=== PATIENT | female | born 1995 | race Asian ===

== ENCOUNTER 2024-07-16 10:42 | Inpatient (IN) | payer MEDICAID ==
[~2024-07-16] VITALS: Ht 149.9 cm; Wt 70.6 kg
[2024-07-16] VITALS (18 sets, daily range): BP systolic 151–193; BP diastolic 95–119; PULSE 75–94; RESP 16–28; TEMP 97.8–98.8; O2SAT 96–99
[2024-07-16] MEDS ORDERED: albumin (human) 25% 100ml IV 100 ML IV PRN (12:40)
[2024-07-16 12:47] LABS: BASOPHILS % (AUTO) 0.5 % (0-1); EOSINOPHILS # (AUTO) 0.3 X10'3 (0-0.9); LYMPHOCYTES # (AUTO) 1.5 X10'3 (1.1-4.8); LYMPHOCYTES % (AUTO) 19.2 % (21-51); MEAN CORPUSCULAR HEMOGLOBIN 31.7 PG (27.0-31.0); MEAN CORPUSCULAR HGB CONC 33.5 g/dL (33.0-36.5); MEAN CORPUSCULAR VOLUME 94.9 FL (78-98); MEAN PLATELET VOLUME 8.8 FL (7.4-10.4); MONOCYTES # (AUTO) 0.7 X10'3 (0-0.9); MONOCYTES % (AUTO) 8.4 % (2-12); NEUTROPHILS # (AUTO) 5.3 X10'3 (1.8-7.7); NEUTROPHILS % (AUTO) 67.9 % (42-75); PLATELET COUNT 146 X10'3 (140-440); RED BLOOD COUNT 1.98 X10'6 (4.20-5.60); WHITE BLOOD COUNT 7.9 X10'3 (4.5-11.0)
[2024-07-16 12:51] LABS: HEMATOCRIT 18.8 % (35.0-45.0); HEMOGLOBIN 6.3 g/dl (12.0-16.0)
[2024-07-16 13:01] LABS: ALANINE AMINOTRANSFERASE 15 U/L (12-78); ALBUMIN 2.4 G/DL (3.4-5.0); ALBUMIN/GLOBULIN RATIO 0.5 (1.1-1.5); ALKALINE PHOSPHATASE 59 IU/L (46-116); ANION GAP 3 (8-16); ASPARTATE AMINO TRANSFERASE 12 U/L (10-37); BILIRUBIN,TOTAL 0.6 MG/DL (0.1-1.0); BLOOD UREA NITROGEN 35 MG/DL (7-18); BUN/CREATININE RATIO 5.2 (10.0-20.0); CALCIUM 8.2 MG/DL (8.5-10.1); CHLORIDE 98 MMOL/L (99-107); CREATININE 6.73 MG/DL (0.40-0.90); GLUCOSE 70 MG/DL (70-104); MAGNESIUM 2.1 MG/DL (1.5-2.4); POTASSIUM 5.4 MMOL/L (3.5-5.1); SODIUM 140 MMOL/L (135-145); TOTAL PROTEIN 6.8 G/DL (6.4-8.2); eCRCL 8 ML/MIN; eGFR 7 ML/MIN
[2024-07-16 14:09] LABS: APTT 27 SECONDS (22-32); INR 1.1 INR; PROTHROMBIN TIME 11.8 SECONDS (9.0-12.0)
[2024-07-16] MEDS ORDERED: acetaminophen 325mg tablet PO PRN ×2 (14:25)
[2024-07-16] MEDS ORDERED: ondansetron 4mg rapidly disintigrating tab PO PRN (14:25)
[2024-07-16] MEDS ORDERED: diphenhydrAMINE 25mg capsule PO PRN (14:25)
[2024-07-16] MEDS ORDERED: bisacodyl 10mg suppository rectal RC PRN (14:25)
[2024-07-16] MEDS ORDERED: HYDROcodone/acetaminophen 5mg/325mg tablet PO PRN (14:25)
[2024-07-16] MEDS ORDERED: magnesium hydroxide 30ml (MOM) UD suspension PO PRN (14:25)
[2024-07-16] MEDS ORDERED: metoclopramide 5 mg/ml inj IV PRN (14:25)
[2024-07-16] MEDS ORDERED: morphine 2 MG/ML inj. syringe IV PRN ×2 (14:25)
[2024-07-16] MEDS ORDERED: acetaminophen 650mg rectal suppository RC PRN (14:25)
[2024-07-16] MEDS ORDERED: ondansetron/PF 4mg/2ml inj IV PRN (14:25)
[2024-07-16] MEDS ORDERED: diphenhydrAMINE 50 mg/ml inj IV PRN (14:25)
[2024-07-16] MEDS ORDERED: mag hydrox/Alum hydrox/simeth 30ml oral suspension PO PRN (14:25)
[2024-07-16 15:24] LABS: PHOSPHORUS 6.2 MG/DL (2.3-4.5)
[2024-07-16 15:37] LABS: HEMOGLOBIN A1C 4.1 % (4.5-6.2)
[2024-07-16 16:37] LABS: PRO BRAIN NATRIURETIC PEPTIDE > 30000 PG/ML (0-125)
[2024-07-16] MEDS: ipratropium/albuterol 3ml nebule NEB PRN (17:00)
[2024-07-16] MEDS: HYDROcodone/acetaminophen 10/325mg tab PO PRN (17:07)
[2024-07-16] MEDS: labetalol 20mg/4ml (5mg/ml) syringe IV PRN (18:39)
[2024-07-16] MEDS: docusate sod 100mg capsule PO SCH (20:00)
[2024-07-16] MEDS ORDERED: PANT40TA54 PO (20:02)
[2024-07-16] MEDS ORDERED: CALC-3 PO (20:02)
[2024-07-16] MEDS ORDERED: PRED5TAB PO (20:02)
[2024-07-16] MEDS ORDERED: METO100T14 PO (20:02)
[2024-07-16] MEDS ORDERED: FOLI0.8T52 PO (20:02)
[2024-07-16] MEDS ORDERED: LOSA-416 PO (20:02)
[2024-07-16] MEDS ORDERED: SULF1TAB48 PO (20:02)
[2024-07-16] MEDS: heparin 1,000 units/ml 10ml inj HE ONE ×2 (20:31→20:32)
[2024-07-16] MEDS: heparin 1,000unit/ml 10ml vial 10 ML IV ONE (20:31)
[2024-07-16] MEDS: heparin 1,000 units/ml 10ml inj IV ONE (20:32)
[2024-07-16] MEDS: EPOETIN ALFA-EPBX 20,000 UNIT/ML 1 ML MDV IV ONE (20:33)
[2024-07-16] MEDS ORDERED: temazepam 15mg capsule PO PRN (21:00)
[2024-07-16] MEDS: metoprolol tartrate 50mg tablet PO SCH (21:03)
[2024-07-16] MEDS: heparin, porcine 5000 units/ml vial SQ SCH (23:46)
[2024-07-16] MEDS: predniSONE 5mg tablet PO SCH (23:54)
[2024-07-16] MEDS: folic acid/vitamin B complex w/vitamin C 0.8mg tablet PO SCH (23:55)
[2024-07-16] MEDS: pantoprazole 40mg Tablet.DR PO SCH (23:55)
[2024-07-16] MEDS: calcium carbonate/vitamin D3 tablet PO SCH (23:56)
[2024-07-17] VITALS (14 sets, daily range): BP systolic 141–198; BP diastolic 84–121; PULSE 74–95; RESP 10–27; TEMP 97.4–99.6; O2SAT 96–100
[2024-07-17 01:17] LABS: HEMATOCRIT 25.2 % (35.0-45.0); HEMOGLOBIN 8.4 g/dl (12.0-16.0); MEAN CORPUSCULAR HEMOGLOBIN 30.4 PG (27.0-31.0); MEAN CORPUSCULAR HGB CONC 33.2 g/dL (33.0-36.5); MEAN CORPUSCULAR VOLUME 91.7 FL (78-98); MEAN PLATELET VOLUME 8.3 FL (7.4-10.4); PLATELET COUNT 155 X10'3 (140-440); RED BLOOD COUNT 2.75 X10'6 (4.20-5.60); RED CELL DISTRIBUTION WIDTH 17.4 % (11.5-14.5); WHITE BLOOD COUNT 9.6 X10'3 (4.5-11.0)
[2024-07-17] MEDS: losartan 50mg tablet PO ONE (03:30)
[2024-07-17] MEDS: labetalol 20mg/4ml (5mg/ml) syringe IV ONE (03:30)
[2024-07-17] MEDS ORDERED: albumin (human) 25% 100ml IV 100 ML IV PRN (05:15)
[2024-07-17 06:51] LABS: ALANINE AMINOTRANSFERASE 17 U/L (12-78); ALBUMIN 2.7 G/DL (3.4-5.0); ALBUMIN/GLOBULIN RATIO 0.5 (1.1-1.5); ALKALINE PHOSPHATASE 62 IU/L (46-116); ANION GAP 6 (8-16); ASPARTATE AMINO TRANSFERASE 15 U/L (10-37); BLOOD UREA NITROGEN 22 MG/DL (7-18); BUN/CREATININE RATIO 4.6 (10.0-20.0); CALCIUM 9.3 MG/DL (8.5-10.1); CHLORIDE 99 MMOL/L (99-107); CHOL/HDL RATIO 2.1 (0.00-4.99); CHOLESTEROL 148 MG/DL (0-200); CREATININE 4.74 MG/DL (0.40-0.90); GLUCOSE 114 MG/DL (70-104); HDL CHOLESTEROL 69 MG/DL (35-60); LDL CHOLESTEROL 61 MG/DL (50-100); POTASSIUM 5.9 MMOL/L (3.5-5.1); SODIUM 135 MMOL/L (135-145); TOTAL CARBON DIOXIDE 30.5 MMOL/L (24-32); TOTAL PROTEIN 7.8 G/DL (6.4-8.2); TRIGLYCERIDES 76 MG/DL (20-135); eCRCL 12 ML/MIN; eGFR 11 ML/MIN
[2024-07-17 07:17] LABS: BASOPHILS % (AUTO) 0.2 % (0-1); EOSINOPHILS % (AUTO) 0.1 % (0-6); HEMATOCRIT 23.4 % (35.0-45.0); HEMOGLOBIN 7.9 g/dl (12.0-16.0); LYMPHOCYTES # (AUTO) 0.4 X10'3 (1.1-4.8); LYMPHOCYTES % (AUTO) 4.6 % (21-51); MEAN CORPUSCULAR HEMOGLOBIN 30.8 PG (27.0-31.0); MEAN CORPUSCULAR HGB CONC 33.7 g/dL (33.0-36.5); MEAN CORPUSCULAR VOLUME 91.6 FL (78-98); MEAN PLATELET VOLUME 8.9 FL (7.4-10.4); MONOCYTES # (AUTO) 0.3 X10'3 (0-0.9); MONOCYTES % (AUTO) 3.5 % (2-12); NEUTROPHILS # (AUTO) 8.3 X10'3 (1.8-7.7); NEUTROPHILS % (AUTO) 91.6 % (42-75); PLATELET COUNT 149 X10'3 (140-440); RED BLOOD COUNT 2.55 X10'6 (4.20-5.60); RED CELL DISTRIBUTION WIDTH 17.4 % (11.5-14.5)
[2024-07-17] MEDS: losartan 50mg tablet PO SCH (07:48)
[2024-07-17] MEDS: pantoprazole 40mg Tablet.DR PO SCH (07:49)
[2024-07-17] MEDS: CefTRIAXone/D5W-Rocephin 1gm 50 ML IV SCH (07:51)
[2024-07-17] MEDS: azithromycin/NS 500mg/250ml 250 ML IV SCH (09:59)
[2024-07-17] MEDS: EPOETIN ALFA-EPBX 20,000 UNIT/ML 1 ML MDV IV ONE (12:00)
[2024-07-17] MEDS: heparin 1,000unit/ml 10ml vial 10 ML IV ONE (13:43)
[2024-07-17] MEDS: heparin 1,000 units/ml 10ml inj HE ONE ×2 (13:44→13:45)
[2024-07-17] MEDS: heparin 1,000 units/ml 10ml inj IV ONE (13:44)
[2024-07-17] MEDS: cloNIDine 0.1 mg tablet PO PRN (23:04)
[2024-07-18] VITALS (9 sets, daily range): BP systolic 124–173; BP diastolic 70–113; PULSE 70–88; RESP 14–28; TEMP 97.7–98.2; O2SAT 95–100
[2024-07-18 06:59] LABS: BASOPHILS # (AUTO) 0.1 X10'3 (0-0.2); BASOPHILS % (AUTO) 0.7 % (0-1); EOSINOPHILS # (AUTO) 0.2 X10'3 (0-0.9); EOSINOPHILS % (AUTO) 1.7 % (0-6); HEMOGLOBIN 8.9 g/dl (12.0-16.0); LYMPHOCYTES # (AUTO) 1.7 X10'3 (1.1-4.8); LYMPHOCYTES % (AUTO) 18.7 % (21-51); MEAN CORPUSCULAR HEMOGLOBIN 30.4 PG (27.0-31.0); MEAN CORPUSCULAR HGB CONC 31.9 g/dL (33.0-36.5); MEAN CORPUSCULAR VOLUME 95.5 FL (78-98); MEAN PLATELET VOLUME 8.8 FL (7.4-10.4); MONOCYTES # (AUTO) 0.8 X10'3 (0-0.9); MONOCYTES % (AUTO) 9.1 % (2-12); NEUTROPHILS # (AUTO) 6.2 X10'3 (1.8-7.7); NEUTROPHILS % (AUTO) 69.8 % (42-75); PLATELET COUNT 185 X10'3 (140-440); RED BLOOD COUNT 2.93 X10'6 (4.20-5.60); RED CELL DISTRIBUTION WIDTH 17.5 % (11.5-14.5); WHITE BLOOD COUNT 8.9 X10'3 (4.5-11.0)
[2024-07-18 07:50] LABS: ALANINE AMINOTRANSFERASE 12 U/L (12-78); ALBUMIN 2.6 G/DL (3.4-5.0); ALBUMIN/GLOBULIN RATIO 0.5 (1.1-1.5); ALKALINE PHOSPHATASE 71 IU/L (46-116); ANION GAP 9 (8-16); ASPARTATE AMINO TRANSFERASE 14 U/L (10-37); BILIRUBIN,TOTAL 0.8 MG/DL (0.1-1.0); BLOOD UREA NITROGEN 25 MG/DL (7-18); BUN/CREATININE RATIO 4.9 (10.0-20.0); CALCIUM 8.1 MG/DL (8.5-10.1); CHLORIDE 102 MMOL/L (99-107); GLUCOSE 103 MG/DL (70-104); POTASSIUM 4.4 MMOL/L (3.5-5.1); SODIUM 137 MMOL/L (135-145); TOTAL CARBON DIOXIDE 25.6 MMOL/L (24-32); TOTAL PROTEIN 7.8 G/DL (6.4-8.2); eCRCL 11 ML/MIN; eGFR 10 ML/MIN
[2024-07-18] MEDS: calcium acetate 667mg (PhosLO) capsule PO SCH (09:18)
[2024-07-19] VITALS (13 sets, daily range): BP systolic 116–181; BP diastolic 76–112; PULSE 60–96; RESP 16–21; TEMP 97.4–98.2; O2SAT 97–99
[2024-07-19 05:18] LABS: HBSAG SCREEN Negative (Negative); HEP B SURF AB Reactive (.)
[2024-07-19 08:39] LABS: BASOPHILS % (AUTO) 0.3 % (0-1); EOSINOPHILS # (AUTO) 0.2 X10'3 (0-0.9); EOSINOPHILS % (AUTO) 1.5 % (0-6); HEMATOCRIT 24.1 % (35.0-45.0); HEMOGLOBIN 8.1 g/dl (12.0-16.0); LYMPHOCYTES % (AUTO) 18.8 % (21-51); MEAN CORPUSCULAR HEMOGLOBIN 30.7 PG (27.0-31.0); MEAN CORPUSCULAR HGB CONC 33.6 g/dL (33.0-36.5); MEAN CORPUSCULAR VOLUME 91.6 FL (78-98); MEAN PLATELET VOLUME 9.2 FL (7.4-10.4); MONOCYTES # (AUTO) 1.1 X10'3 (0-0.9); MONOCYTES % (AUTO) 10.5 % (2-12); NEUTROPHILS # (AUTO) 7.4 X10'3 (1.8-7.7); NEUTROPHILS % (AUTO) 68.9 % (42-75); PLATELET COUNT 191 X10'3 (140-440); RED BLOOD COUNT 2.63 X10'6 (4.20-5.60); WHITE BLOOD COUNT 10.8 X10'3 (4.5-11.0)
[2024-07-19 08:52] LABS: ALANINE AMINOTRANSFERASE 11 U/L (12-78); ALBUMIN 2.4 G/DL (3.4-5.0); ALBUMIN/GLOBULIN RATIO 0.5 (1.1-1.5); ALKALINE PHOSPHATASE 77 IU/L (46-116); ANION GAP 10 (8-16); ASPARTATE AMINO TRANSFERASE 11 U/L (10-37); BILIRUBIN,TOTAL 0.6 MG/DL (0.1-1.0); BLOOD UREA NITROGEN 43 MG/DL (7-18); BUN/CREATININE RATIO 5.3 (10.0-20.0); CALCIUM 9.1 MG/DL (8.5-10.1); CHLORIDE 99 MMOL/L (99-107); CREATININE 8.19 MG/DL (0.40-0.90); GLUCOSE 137 MG/DL (70-104); POTASSIUM 4.6 MMOL/L (3.5-5.1); SODIUM 133 MMOL/L (135-145); TOTAL CARBON DIOXIDE 23.6 MMOL/L (24-32); TOTAL PROTEIN 7.1 G/DL (6.4-8.2); eCRCL 7 ML/MIN; eGFR 6 ML/MIN
[2024-07-19] MEDS ORDERED: albumin (human) 25% 100ml IV 100 ML IV PRN (14:40)
[2024-07-19] MEDS: EPOETIN ALFA-EPBX 20,000 UNIT/ML 1 ML MDV IV ONE (16:12)
[2024-07-19] MEDS: heparin 1,000 units/ml 10ml inj IV ONE (16:13)
[2024-07-19] MEDS: heparin 1,000unit/ml 10ml vial 10 ML IV ONE (16:13)
[2024-07-19] MEDS: heparin 1,000 units/ml 10ml inj HE ONE ×2 (16:14)
== END 2024-07-19 19:10 | disposition home or self-care (01) | DRG 139 ==
LOC: ER 10:43 → ED HOLD 14:29 → PCU 3S 17:50
PROVIDERS: ADMIT Family Medicine; ATTEND Family Medicine
PROC: 30233N1 Transfusion of Nonautologous Red Blood Cells into Peripheral Vein, Percutaneous Approach (ICD-10-PCS; principal; 2024-07-16)
PROC: 5A1D70Z Performance of Urinary Filtration, Intermittent, Less than 6 Hours Per Day (ICD-10-PCS; 2024-07-16)
PROC: 5A1D70Z Performance of Urinary Filtration, Intermittent, Less than 6 Hours Per Day (ICD-10-PCS; 2024-07-17)
PROC: 5A1D70Z Performance of Urinary Filtration, Intermittent, Less than 6 Hours Per Day (ICD-10-PCS; 2024-07-19)
DX: J16.8 Pneumonia due to other specified infectious organisms (principal); J96.01 Acute respiratory failure with hypoxia; I50.33 Acute on chronic diastolic (congestive) heart failure; T86.12 Kidney transplant failure; Z20.822 Contact with and (suspected) exposure to COVID-19; N18.6 End stage renal disease; E88.09 Other disorders of plasma-protein metabolism, not elsewhere classified; I13.2 Hypertensive heart and chronic kidney disease with heart failure and with stage 5 chronic kidney disease, or end stage renal disease; E78.5 Hyperlipidemia, unspecified; D64.9 Anemia, unspecified; J06.9 Acute upper respiratory infection, unspecified; E87.5 Hyperkalemia; Y83.0 Surgical operation with transplant of whole organ as the cause of abnormal reaction of the patient, or of later complication, without mention of misadventure at the time of the procedure; Z79.899 Other long term (current) drug therapy; Z99.2 Dependence on renal dialysis; Y92.89 Other specified places as the place of occurrence of the external cause
CPT/HCPCS: 36415; 36430; 71045; 80053; 80061; 83036; 83605; 83735; 83880; 84100; 84145; 84443; 85025; 85027; 85610; 85730; 86706; 86885; 86900; 86901; 86920; 87040; 87081; 87340; 87502; 87503; 87811; 93005; 94640; 94760; 99291; A6449; E1594; G0257; G0378; J0456; J0696; J1644; J3490; J7030; J7040; J7050; J7512; P9016; Q4081

== ENCOUNTER 2024-07-31 10:05 | Emergency (ER) | payer MEDICAID ==
[~2024-07-31] VITALS: Ht 149.9 cm; Wt 63.6 kg
[~2024-07-31 10:05] MED LIST: CALC-3 PO; FOLI0.8T52 PO; LOSA-416 PO; METO100T14 PO; PANT40TA54 PO; PRED5TAB PO; SULF1TAB48 PO
[2024-07-31 10:19] VITALS: BP 184/126; PULSE 97; O2SAT 100
[2024-07-31 14:05] VITALS: RESP 16
[2024-07-31] MEDS: ondansetron 4mg rapidly disintigrating tab PO ONE (14:05)
[2024-07-31] MEDS: HYDROcodone/acetaminophen 10/325mg tab PO ONE (14:05)
[2024-07-31] MEDS ORDERED: CEPH-585 PO (14:12)
[2024-07-31] MEDS ORDERED: HYDR-3972 PO (14:12)
[2024-07-31 15:13] VITALS: TEMP 98.1
== END 2024-07-31 15:16 | disposition home or self-care (01) ==
LOC: ER 10:06
DX: M79.671 Pain in right foot (principal)
CPT/HCPCS: 73630; 99283; L4360

== ENCOUNTER 2024-08-07 15:01 | Inpatient (IN) | payer MEDICAID ==
[~2024-08-07] VITALS: Ht 149.9 cm; Wt 72.5 kg
[~2024-08-07 15:01] MED LIST changes: +CEPH-585 PO
[2024-08-07 16:01] LABS: BASOPHILS % (AUTO) 0.6 % (0-1); EOSINOPHILS # (AUTO) 0.4 X10'3 (0-0.9); HEMATOCRIT 24.8 % (35.0-45.0); HEMOGLOBIN 8.3 g/dl (12.0-16.0); LYMPHOCYTES # (AUTO) 1.2 X10'3 (1.1-4.8); LYMPHOCYTES % (AUTO) 17.9 % (21-51); MEAN CORPUSCULAR HEMOGLOBIN 30.2 PG (27.0-31.0); MEAN CORPUSCULAR HGB CONC 33.5 g/dL (33.0-36.5); MEAN CORPUSCULAR VOLUME 90.4 FL (78-98); MEAN PLATELET VOLUME 8.1 FL (7.4-10.4); MONOCYTES # (AUTO) 0.8 X10'3 (0-0.9); NEUTROPHILS # (AUTO) 4.3 X10'3 (1.8-7.7); NEUTROPHILS % (AUTO) 63.5 % (42-75); PLATELET COUNT 297 X10'3 (140-440); RED BLOOD COUNT 2.74 X10'6 (4.20-5.60); RED CELL DISTRIBUTION WIDTH 16.7 % (11.5-14.5); WHITE BLOOD COUNT 6.8 X10'3 (4.5-11.0)
[2024-08-07 16:20] LABS: ALANINE AMINOTRANSFERASE 17 U/L (12-78); ALBUMIN 2.5 G/DL (3.4-5.0); ALBUMIN/GLOBULIN RATIO 0.4 (1.1-1.5); ALKALINE PHOSPHATASE 46 IU/L (46-116); ANION GAP 3 (8-16); ASPARTATE AMINO TRANSFERASE 19 U/L (10-37); BILIRUBIN,TOTAL 1.1 MG/DL (0.1-1.0); BLOOD UREA NITROGEN 5 MG/DL (7-18); BUN/CREATININE RATIO 1.7 (10.0-20.0); CALCIUM 8.1 MG/DL (8.5-10.1); CHLORIDE 93 MMOL/L (99-107); CREATININE 2.89 MG/DL (0.40-0.90); GLUCOSE 69 MG/DL (70-104); POTASSIUM 3.7 MMOL/L (3.5-5.1); SODIUM 135 MMOL/L (135-145); TOTAL CARBON DIOXIDE 38.6 MMOL/L (24-32); TOTAL PROTEIN 8.5 G/DL (6.4-8.2); eCRCL 19 ML/MIN; eGFR 19 ML/MIN
[2024-08-07] MEDS: acetaminophen 325mg tablet PO ONE ×2 (16:43→18:58)
[2024-08-07 17:06] LABS: PRO BRAIN NATRIURETIC PEPTIDE > 30000 PG/ML (0-125)
[2024-08-07] MEDS ORDERED: PANT20TA2 PO (18:25)
[2024-08-07] MEDS ORDERED: DOXY100T67 PO (18:25)
[2024-08-07] MEDS ORDERED: ALPR-624 PO (18:25)
[2024-08-07] MEDS ORDERED: FLUT1BLS13 INH (18:25)
[2024-08-07] MEDS ORDERED: PRED1TAB PO (22:22)
[2024-08-07] MEDS ORDERED: CLON0.1T2 PO (22:22)
[2024-08-07] MEDS ORDERED: magnesium hydroxide 30ml (MOM) UD suspension PO PRN (23:15)
[2024-08-07] MEDS ORDERED: magnesium sulf-water 4G/100mL 100 ML IV PRN (23:15)
[2024-08-07] MEDS ORDERED: magnesium Cl slow-release 64mg tablet PO PRN (23:15)
[2024-08-07] MEDS ORDERED: acetaminophen 325mg tablet PO PRN (23:15)
[2024-08-07] MEDS ORDERED: mag hydrox/Alum hydrox/simeth 30ml oral suspension PO PRN (23:15)
[2024-08-07] MEDS ORDERED: potassium Cl 40MEQ/1/2NS 520ml 520 ML IV PRN (23:15)
[2024-08-07] MEDS ORDERED: magnesium sulf-water 2g/50mL 50 ML IV PRN (23:15)
[2024-08-07] MEDS ORDERED: HYDROmorphone/PF 0.2 MG/ML SYRINGE IV PRN (23:15)
[2024-08-07] MEDS ORDERED: potassium Cl 20 mEq SR tablet PO PRN ×2 (23:15)
[2024-08-08] MEDS: folic acid/vitamin B complex w/vitamin C 0.8mg tablet PO SCH (00:03)
[2024-08-08] MEDS: predniSONE 1 mg tablet PO SCH (00:03)
[2024-08-08] MEDS: cloNIDine 0.1 mg tablet PO SCH (00:04)
[2024-08-08] MEDS: HYDROmorphone inj. 0.5 MG/0.5 ML DISP.SYRIN IV PRN (00:04)
[2024-08-08] MEDS: normal saline 1000ml 1,000 ML IV SCH (00:04)
[2024-08-08] MEDS: pantoprazole 40 MG vial IV SCH (00:04)
[2024-08-08 00:05] LABS: HCG SERUM QL NEGATIVE
[2024-08-08] MEDS: PERFLUTREN PROTEIN-A MICROSPHR (Optison) 0.22 MG/ML 3ML VIAL IV ONE (00:13)
[2024-08-08 02:04] LABS: D-DIMER 3.94 MG/L FEU (0-0.50)
[2024-08-08 02:24] LABS: ABG BASE EXCESS 9.9 mmol/L (-2.0-3.0); ABG HCO3 32.7 mmol/L (21.0-28.0); ABG OXYGEN SATURATION 95.7 % (94.0-98.0); ABG PCO2 (T) 36.1 mmHg (32.0-45.0); ABG PH (T) 7.574 (7.350-7.450); ABG PO2 (T) 73.5 mmHg (83.0-108.0); ALLEN'S TEST POSITIVE; FHHb 4.2 % (0.0-5.0); FMetHb 0.3 % (0.0-1.5); FO2Hb 93.5 % (94.0-98.0); PATIENT TEMPERATURE 36.9; TOTAL HEMOGLOBIN 7.7 G/dl (12.0-16.0)
[2024-08-08] MEDS: metoprolol tartrate 1mg/ml inj IV SCH (02:40)
[2024-08-08] MEDS: heparin, porcine 5000 units/ml vial SQ SCH (02:40)
[2024-08-08 02:54] LABS: BASOPHILS # (AUTO) 0.1 X10'3 (0-0.2); BASOPHILS % (AUTO) 0.9 % (0-1); EOSINOPHILS # (AUTO) 0.6 X10'3 (0-0.9); EOSINOPHILS % (AUTO) 7.5 % (0-6); HEMOGLOBIN 7.1 g/dl (12.0-16.0); LYMPHOCYTES # (AUTO) 1.2 X10'3 (1.1-4.8); LYMPHOCYTES % (AUTO) 16.3 % (21-51); MEAN CORPUSCULAR HEMOGLOBIN 30.4 PG (27.0-31.0); MEAN CORPUSCULAR HGB CONC 33.2 g/dL (33.0-36.5); MEAN CORPUSCULAR VOLUME 91.7 FL (78-98); MONOCYTES # (AUTO) 1.2 X10'3 (0-0.9); MONOCYTES % (AUTO) 15.4 % (2-12); NEUTROPHILS # (AUTO) 4.6 X10'3 (1.8-7.7); NEUTROPHILS % (AUTO) 59.9 % (42-75); PLATELET COUNT 256 X10'3 (140-440); RED BLOOD COUNT 2.33 X10'6 (4.20-5.60); RED CELL DISTRIBUTION WIDTH 16.4 % (11.5-14.5); WHITE BLOOD COUNT 7.7 X10'3 (4.5-11.0)
[2024-08-08 02:56] LABS: HEMATOCRIT 21.4 % (35.0-45.0)
[2024-08-08] MEDS: azithromycin 250mg tablet PO ONE (03:09)
[2024-08-08 03:17] LABS: TOTAL CELLS COUNTED 100
[2024-08-08 03:22] LABS: ALANINE AMINOTRANSFERASE 16 U/L (12-78); ALBUMIN 2.3 G/DL (3.4-5.0); ALBUMIN/GLOBULIN RATIO 0.4 (1.1-1.5); ALKALINE PHOSPHATASE 41 IU/L (46-116); ANION GAP 9 (8-16); ASPARTATE AMINO TRANSFERASE 14 U/L (10-37); BILIRUBIN,TOTAL 1.1 MG/DL (0.1-1.0); BLOOD UREA NITROGEN 13 MG/DL (7-18); BUN/CREATININE RATIO 2.8 (10.0-20.0); CALCIUM 8.2 MG/DL (8.5-10.1); CHLORIDE 92 MMOL/L (99-107); CREATININE 4.72 MG/DL (0.40-0.90); GLUCOSE 65 MG/DL (70-104); MAGNESIUM 1.7 MG/DL (1.5-2.4); POTASSIUM 4.1 MMOL/L (3.5-5.1); SODIUM 137 MMOL/L (135-145); TOTAL CARBON DIOXIDE 36.2 MMOL/L (24-32); TOTAL PROTEIN 7.8 G/DL (6.4-8.2); eCRCL 12 ML/MIN; eGFR 11 ML/MIN
[2024-08-08] MEDS: hydrALAZINE 20mg/ml inj. IV ONE (04:52)
[2024-08-08] MEDS: nitroGLYCERIN-Tridil 50MG/D5W 250 ML IV SCH (05:43)
[2024-08-08] MEDS: nitroGLYCERIN-Tridil 50MG/D5W 250 ML IV PRN (06:43)
[2024-08-08] MEDS: K and/or MAG REPLACEMENT MC SCH (08:00)
[2024-08-08] MEDS: docusate sod 100mg capsule PO SCH (08:00)
[2024-08-08] MEDS: CefTRIAXone/D5W-Rocephin 1gm 50 ML IV SCH (08:14)
[2024-08-08] MEDS: losartan 50mg tablet PO SCH (08:16)
[2024-08-08] MEDS: metoprolol tartrate 50mg tablet PO SCH (08:17)
[2024-08-08] MEDS: ondansetron/PF 4mg/2ml inj IV PRN (12:26)
[2024-08-08] MEDS: acetaminophen 325mg tablet PO PRN (16:00)
[2024-08-08 16:32] VITALS: RESP 18; O2SAT 98
[2024-08-08] MEDS: COMMUNICATION ORDER 1 EA MISC MC ONE (17:22)
[2024-08-08] MEDS: ALPRAZolam 0.5mg tablet PO SCH (20:37)
[2024-08-08] MEDS: LORazepam 2 mg/ml vial IV ONE (21:35)
[2024-08-08] MEDS: cloNIDine 0.1 mg tablet PO ONE (21:42)
[2024-08-09] VITALS (18 sets, daily range): BP systolic 121–198; BP diastolic 45–122; PULSE 71–98; RESP 12–56; TEMP 97–99.6; O2SAT 85–99
[2024-08-09] MEDS: labetalol 20mg/4ml (5mg/ml) syringe IV ONE (00:02)
[2024-08-09 01:32] LABS: ABG BASE EXCESS 8.1 mmol/L (-2.0-3.0); ABG HCO3 32.1 mmol/L (21.0-28.0); ABG OXYGEN SATURATION 94.6 % (94.0-98.0); ABG PCO2 (T) 42.4 mmHg (32.0-45.0); ABG PH (T) 7.496 (7.350-7.450); ABG PO2 (T) 70.1 mmHg (83.0-108.0); ALLEN'S TEST POSITIVE; FCOHb 1.8 % (0.5-1.5); FHHb 5.3 % (0.0-5.0); FLOW 3 L/min; FO2Hb 92.9 % (94.0-98.0); MODE NASAL CANNULA; PATIENT TEMPERATURE 36.8; TOTAL HEMOGLOBIN 7.1 G/dl (12.0-16.0)
[2024-08-09] MEDS ORDERED: albuterol 2.5 MG/3 ML nebule NEB PRN (01:35)
[2024-08-09] MEDS: LORazepam 2 mg/ml vial IV ONE (02:13)
[2024-08-09] MEDS ORDERED: ipratropium/albuterol 3ml nebule NEB PRN (03:00)
[2024-08-09 03:36] LABS: BASOPHILS # (AUTO) 0.1 X10'3 (0-0.2); BASOPHILS % (AUTO) 1.2 % (0-1); EOSINOPHILS # (AUTO) 0.5 X10'3 (0-0.9); EOSINOPHILS % (AUTO) 5.8 % (0-6); HEMOGLOBIN 7.1 g/dl (12.0-16.0); LYMPHOCYTES # (AUTO) 1.3 X10'3 (1.1-4.8); LYMPHOCYTES % (AUTO) 14.5 % (21-51); MEAN CORPUSCULAR HEMOGLOBIN 30.6 PG (27.0-31.0); MEAN CORPUSCULAR HGB CONC 33.2 g/dL (33.0-36.5); MEAN CORPUSCULAR VOLUME 92.2 FL (78-98); MEAN PLATELET VOLUME 7.9 FL (7.4-10.4); MONOCYTES # (AUTO) 1.2 X10'3 (0-0.9); MONOCYTES % (AUTO) 12.8 % (2-12); NEUTROPHILS # (AUTO) 5.9 X10'3 (1.8-7.7); NEUTROPHILS % (AUTO) 65.7 % (42-75); PLATELET COUNT 245 X10'3 (140-440); RED BLOOD COUNT 2.33 X10'6 (4.20-5.60); RED CELL DISTRIBUTION WIDTH 16.9 % (11.5-14.5)
[2024-08-09 03:40] LABS: HEMATOCRIT 21.5 % (35.0-45.0)
[2024-08-09 03:52] LABS: ALANINE AMINOTRANSFERASE 16 U/L (12-78); ALBUMIN 2.4 G/DL (3.4-5.0); ALBUMIN/GLOBULIN RATIO 0.4 (1.1-1.5); ALKALINE PHOSPHATASE 42 IU/L (46-116); ANION GAP 9 (8-16); ASPARTATE AMINO TRANSFERASE 12 U/L (10-37); BILIRUBIN,TOTAL 0.7 MG/DL (0.1-1.0); BLOOD UREA NITROGEN 23 MG/DL (7-18); CALCIUM 8.6 MG/DL (8.5-10.1); CHLORIDE 90 MMOL/L (99-107); CREATININE 7.61 MG/DL (0.40-0.90); GLUCOSE 75 MG/DL (70-104); PHOSPHORUS 5.4 MG/DL (2.3-4.5); POTASSIUM 4.5 MMOL/L (3.5-5.1); SODIUM 134 MMOL/L (135-145); TOTAL CARBON DIOXIDE 34.9 MMOL/L (24-32); TOTAL PROTEIN 7.9 G/DL (6.4-8.2); eCRCL 7 ML/MIN; eGFR 6 ML/MIN
[2024-08-09] MEDS: ipratropium/albuterol 3ml nebule NEB SCH (08:00)
[2024-08-09] MEDS: furosemide 20MG tablet PO SCH (09:39)
[2024-08-09 10:16] LABS: LIPASE 17 U/L (16-77)
[2024-08-09] MEDS: EPOETIN ALFA-EPBX 20,000 UNIT/ML 1 ML MDV IV ONE (15:11)
[2024-08-09] MEDS: heparin 1,000 units/ml 10ml inj HE ONE ×2 (15:14→15:15)
[2024-08-09] MEDS: heparin 1,000 units/ml 10ml inj IV ONE (15:16)
[2024-08-09] MEDS ORDERED: azithromycin 250mg tablet PO STA (16:31)
[2024-08-09] MEDS ORDERED: LEVO750T68 PO (16:36)
[2024-08-09] MEDS: levoFLOXACIN 750MG TABLET PO STA (16:51)
[2024-08-09] MEDS: hydrALAZINE 20mg/ml inj. IV STA (16:51)
== END 2024-08-09 18:00 | disposition home or self-care (01) | DRG 199 ==
LOC: ER 15:01 → ED HOLD 22:05 → PCU 3S 08-08 22:24
PROVIDERS: ADMIT Internal Medicine; ATTEND Internal Medicine
PROC: CB121ZZ Planar Nuclear Medicine Imaging of Lungs and Bronchi using Technetium 99m (Tc-99m) (ICD-10-PCS; 2024-08-08)
PROC: 5A1D70Z Performance of Urinary Filtration, Intermittent, Less than 6 Hours Per Day (ICD-10-PCS; principal; 2024-08-09)
DX: I16.1 Hypertensive emergency (principal); I50.33 Acute on chronic diastolic (congestive) heart failure; J18.9 Pneumonia, unspecified organism; N18.6 End stage renal disease; D64.9 Anemia, unspecified; I13.2 Hypertensive heart and chronic kidney disease with heart failure and with stage 5 chronic kidney disease, or end stage renal disease; J40 Bronchitis, not specified as acute or chronic; Z99.2 Dependence on renal dialysis
CPT/HCPCS: 36415; 36600; 71045; 71250; 74176; 80053; 82803; 82948; 83605; 83690; 83735; 83880; 84100; 84145; 84484; 84703; 85007; 85018; 85025; 85379; 87040; 87081; 87502; 87503; 87811; 93005; 93306; 93970; 94760; 99285; A4615; E1594; G0257; G0378; J0360; J0696; J1171; J1644; J2060; J2405; J2470; J3490; J7030; J7512; Q4081

== ENCOUNTER 2024-10-14 15:03 | Inpatient (IN) | payer MEDICAID ==
[~2024-10-14] VITALS: Ht 149.9 cm; Wt 61.8 kg
[~2024-10-14 15:03] MED LIST changes: +ALPR-624 PO; +AMLO10TA5 PO; +CARV25TA2 PO; -CEPH-585 PO; +CLON0.1T2 PO; +FAMO20TA8 PO; +HYDR100T12 PO; +LOSA-418 PO; +MYCO250C46 PO; +PANT20TA2 PO; +PRED1TAB PO; -SULF1TAB48 PO; +TACR1CAP2 PO
[2024-10-14 15:39] LABS: BASOPHILS # (AUTO) 0.1 X10'3 (0-0.2); BASOPHILS % (AUTO) 1.2 % (0-1); EOSINOPHILS % (AUTO) 0.3 % (0-6); HEMATOCRIT 30.7 % (35.0-45.0); HEMOGLOBIN 10.2 g/dl (12.0-16.0); LYMPHOCYTES # (AUTO) 0.8 X10'3 (1.1-4.8); LYMPHOCYTES % (AUTO) 12.8 % (21-51); MEAN CORPUSCULAR HEMOGLOBIN 30.3 PG (27.0-31.0); MEAN CORPUSCULAR HGB CONC 33.1 g/dL (33.0-36.5); MEAN CORPUSCULAR VOLUME 91.5 FL (78-98); MEAN PLATELET VOLUME 7.4 FL (7.4-10.4); MONOCYTES # (AUTO) 0.5 X10'3 (0-0.9); MONOCYTES % (AUTO) 7.1 % (2-12); NEUTROPHILS # (AUTO) 5.2 X10'3 (1.8-7.7); NEUTROPHILS % (AUTO) 78.6 % (42-75); PLATELET COUNT 151 X10'3 (140-440); RED BLOOD COUNT 3.36 X10'6 (4.20-5.60); RED CELL DISTRIBUTION WIDTH 17.9 % (11.5-14.5); WHITE BLOOD COUNT 6.6 X10'3 (4.5-11.0)
[2024-10-14 15:58] LABS: ALANINE AMINOTRANSFERASE 13 U/L (12-78); ALBUMIN 3.3 G/DL (3.4-5.0); ALKALINE PHOSPHATASE 63 IU/L (46-116); ANION GAP 5 (8-16); ASPARTATE AMINO TRANSFERASE 17 U/L (10-37); BILIRUBIN,TOTAL 0.6 MG/DL (0.1-1.0); BLOOD UREA NITROGEN 5 MG/DL (7-18); BUN/CREATININE RATIO 1.3 (10.0-20.0); CALCIUM 8.8 MG/DL (8.5-10.1); CHLORIDE 99 MMOL/L (99-107); CREATININE 3.92 MG/DL (0.40-0.90); GLUCOSE 83 MG/DL (70-104); LIPASE 21 U/L (16-77); POTASSIUM 4.3 MMOL/L (3.5-5.1); SODIUM 139 MMOL/L (135-145); TOTAL CARBON DIOXIDE 35.4 MMOL/L (24-32); TOTAL PROTEIN 6.7 G/DL (6.4-8.2); eCRCL 14 ML/MIN; eGFR 13 ML/MIN
[2024-10-14] MEDS: ondansetron/PF 4mg/2ml inj IV ONE (23:32)
[2024-10-14] MEDS: normal saline 1000ml 1,000 ML IV ONE (23:32)
[2024-10-15] VITALS (8 sets, daily range): BP systolic 136–161; BP diastolic 91–101; PULSE 84–94; RESP 12–19; TEMP 97.5–98.7; O2SAT 93–98
[2024-10-15 01:45] LABS: HCG SERUM QL NEGATIVE
[2024-10-15] MEDS: acetaminophen 325mg tablet PO ONE (02:49)
[2024-10-15] MEDS ORDERED: acetaminophen 325mg tablet PO PRN (04:35)
[2024-10-15] MEDS ORDERED: potassium Cl 40MEQ/1/2NS 520ml 520 ML IV PRN (04:35)
[2024-10-15] MEDS ORDERED: AMLO-708 PO (04:35)
[2024-10-15] MEDS ORDERED: LOSA-415 PO (04:35)
[2024-10-15] MEDS ORDERED: TACR0.5C20 PO (04:35)
[2024-10-15] MEDS ORDERED: magnesium sulf-water 2g/50mL 50 ML IV PRN (04:35)
[2024-10-15] MEDS ORDERED: MYCO250C46 PO (04:35)
[2024-10-15] MEDS ORDERED: magnesium sulf-water 4G/100mL 100 ML IV PRN (04:35)
[2024-10-15] MEDS ORDERED: magnesium Cl slow-release 64mg tablet PO PRN (04:35)
[2024-10-15] MEDS ORDERED: FAMO20TA8 PO (04:35)
[2024-10-15] MEDS ORDERED: CARV-50 PO (04:35)
[2024-10-15] MEDS ORDERED: CYAN500T71 PO (04:35)
[2024-10-15] MEDS ORDERED: potassium Cl 20 mEq SR tablet PO PRN ×2 (04:35)
[2024-10-15] MEDS: ciprofloxacin lact 400MG/200ML 200 ML IV ONE (04:42)
[2024-10-15 07:20] LABS: MAGNESIUM 1.7 MG/DL (1.5-2.4); POTASSIUM 4.6 MMOL/L (3.5-5.1)
[2024-10-15] MEDS: K and/or MAG REPLACEMENT MC SCH (08:00)
[2024-10-15] MEDS: HYDROcodone/acetaminophen 5mg/325mg tablet PO PRN (11:08)
[2024-10-15] MEDS: acetaminophen 325mg tablet PO PRN (14:51)
[2024-10-15] MEDS: mycophenolate mofetil 250mg capsule PO SCH (19:28)
[2024-10-15] MEDS: carVEDilol 12.5mg tablet PO SCH (19:28)
[2024-10-15] MEDS: hydrALAZINE 25 MG tablet PO SCH (19:29)
[2024-10-15] MEDS: metroNIDAZOLE-Flagyl 500mg/NS 100 ML IV SCH (21:34)
[2024-10-15] MEDS: ondansetron/PF 4mg/2ml inj IV PRN (23:08)
[2024-10-16] VITALS (16 sets, daily range): BP systolic 91–179; BP diastolic 52–102; PULSE 91–108; RESP 11–26; TEMP 97.7–99.4; O2SAT 94–99
[2024-10-16] MEDS: amLODIPine 5mg tablet PO SCH ×2 (02:03→07:22)
[2024-10-16] MEDS: hydrALAZINE 20mg/ml inj. IV ONE (03:17)
[2024-10-16 06:31] LABS: PROTHROMBIN TIME 10.3 SECONDS (9.0-12.0)
[2024-10-16 06:43] LABS: BASOPHILS # (AUTO) 0.1 X10'3 (0-0.2); BASOPHILS % (AUTO) 0.5 % (0-1); EOSINOPHILS # (AUTO) 0.1 X10'3 (0-0.9); EOSINOPHILS % (AUTO) 0.5 % (0-6); HEMATOCRIT 26.8 % (35.0-45.0); HEMOGLOBIN 9.1 g/dl (12.0-16.0); LYMPHOCYTES % (AUTO) 10.2 % (21-51); MEAN CORPUSCULAR HEMOGLOBIN 31.1 PG (27.0-31.0); MEAN CORPUSCULAR HGB CONC 33.9 g/dL (33.0-36.5); MEAN CORPUSCULAR VOLUME 91.5 FL (78-98); MEAN PLATELET VOLUME 7.6 FL (7.4-10.4); MONOCYTES # (AUTO) 1.3 X10'3 (0-0.9); MONOCYTES % (AUTO) 12.3 % (2-12); NEUTROPHILS # (AUTO) 7.8 X10'3 (1.8-7.7); NEUTROPHILS % (AUTO) 76.5 % (42-75); PLATELET COUNT 120 X10'3 (140-440); RED BLOOD COUNT 2.93 X10'6 (4.20-5.60); RED CELL DISTRIBUTION WIDTH 16.9 % (11.5-14.5); WHITE BLOOD COUNT 10.2 X10'3 (4.5-11.0)
[2024-10-16 06:49] LABS: ANION GAP 10 (8-16); BLOOD UREA NITROGEN 16 MG/DL (7-18); BUN/CREATININE RATIO 2.1 (10.0-20.0); CALCIUM 8.7 MG/DL (8.5-10.1); CHLORIDE 98 MMOL/L (99-107); CREATININE 7.46 MG/DL (0.40-0.90); GLUCOSE 66 MG/DL (70-104); MAGNESIUM 1.7 MG/DL (1.5-2.4); PHOSPHORUS 3.8 MG/DL (2.3-4.5); POTASSIUM 4.9 MMOL/L (3.5-5.1); SODIUM 137 MMOL/L (135-145); TOTAL CARBON DIOXIDE 28.8 MMOL/L (24-32); eCRCL 7 ML/MIN; eGFR 6 ML/MIN
[2024-10-16] MEDS: losartan 50mg tablet PO SCH (07:22)
[2024-10-16] MEDS: calcium carbonate/vitamin D3 tablet PO SCH (07:23)
[2024-10-16] MEDS ORDERED: mag hydrox/Alum hydrox/simeth 30ml oral suspension PO PRN (07:30)
[2024-10-16] MEDS: mag hydrox/Alum hydrox/simeth 30ml oral suspension PO PRN (07:34)
[2024-10-16] MEDS: levoFLOXACIN-Levaquin 500mg/D5 100 ML IV SCH (07:35)
[2024-10-16] MEDS ORDERED: normal saline 1000ml 100 ML IV PRN (08:00)
[2024-10-16] MEDS: famotidine 20mg tablet PO ONE (09:35)
[2024-10-16] MEDS: heparin 1,000 units/ml 10ml inj HE ONE ×2 (13:37)
[2024-10-16] MEDS: pantoprazole 40 MG vial IV SCH (14:01)
[2024-10-16] MEDS: predniSONE 5mg tablet PO ONE (16:01)
[2024-10-16] MEDS: heparin, porcine 5000 units/ml vial SQ SCH (19:18)
[2024-10-16] MEDS: enoxaparin 60mg/0.6ml syringe SUBCUT SCH (21:19)
[2024-10-16] MEDS: Melatonin 3mg tablet PO ONE (23:41)
[2024-10-17] VITALS (8 sets, daily range): BP systolic 124–155; BP diastolic 76–96; PULSE 94–104; RESP 12–28; TEMP 98.1–98.6; O2SAT 96–98
[2024-10-17 06:07] LABS: BASOPHILS % (AUTO) 0.4 % (0-1); EOSINOPHILS % (AUTO) 0.1 % (0-6); HEMATOCRIT 26.1 % (35.0-45.0); HEMOGLOBIN 8.4 g/dl (12.0-16.0); LYMPHOCYTES # (AUTO) 0.9 X10'3 (1.1-4.8); LYMPHOCYTES % (AUTO) 11.2 % (21-51); MEAN CORPUSCULAR HEMOGLOBIN 29.8 PG (27.0-31.0); MEAN CORPUSCULAR VOLUME 93.2 FL (78-98); MONOCYTES # (AUTO) 0.8 X10'3 (0-0.9); MONOCYTES % (AUTO) 10.2 % (2-12); NEUTROPHILS # (AUTO) 6.4 X10'3 (1.8-7.7); NEUTROPHILS % (AUTO) 78.1 % (42-75); PLATELET COUNT 133 X10'3 (140-440); RED BLOOD COUNT 2.81 X10'6 (4.20-5.60); RED CELL DISTRIBUTION WIDTH 17.7 % (11.5-14.5); WHITE BLOOD COUNT 8.2 X10'3 (4.5-11.0)
[2024-10-17 06:19] LABS: ANION GAP 13 (8-16); BLOOD UREA NITROGEN 10 MG/DL (7-18); CALCIUM 9.1 MG/DL (8.5-10.1); CHLORIDE 101 MMOL/L (99-107); CREATININE 5.06 MG/DL (0.40-0.90); GLUCOSE 73 MG/DL (70-104); MAGNESIUM 2.2 MG/DL (1.5-2.4); PHOSPHORUS 3.9 MG/DL (2.3-4.5); POTASSIUM 5.4 MMOL/L (3.5-5.1); SODIUM 138 MMOL/L (135-145); TOTAL CARBON DIOXIDE 24.4 MMOL/L (24-32); eCRCL 11 ML/MIN; eGFR 10 ML/MIN
[2024-10-17] MEDS: predniSONE 5mg tablet PO SCH (08:17)
[2024-10-17] MEDS: losartan 25mg tablet PO SCH (08:19)
[2024-10-17] MEDS: dextrose 50%-water 50ml dispensing syringe IV ONE (09:53)
[2024-10-17] MEDS: insulin regular, human 10 units/0.1 ml syringe IV ONE (09:58)
[2024-10-17] MEDS ORDERED: iohexol 350MG/ML 100ml bottle IV ONE (13:59)
[2024-10-17] MEDS: SODIUM ZIRCONIUM CYCLOSILICATE 10 GM POWD.PACK PO SCH (15:55)
[2024-10-17] MEDS: NUT.TX.IMP.RENAL FXN,LAC-REDUC (Nepro) 237 ML VANILLA PO SCH (18:53)
[2024-10-18] VITALS (12 sets, daily range): BP systolic 129–165; BP diastolic 72–96; PULSE 90–102; RESP 14–22; TEMP 97.7–98.7; O2SAT 95–98
[2024-10-18 06:16] LABS: BASOPHILS % (AUTO) 0.6 % (0-1); EOSINOPHILS # (AUTO) 0.1 X10'3 (0-0.9); EOSINOPHILS % (AUTO) 0.7 % (0-6); HEMATOCRIT 23.9 % (35.0-45.0); HEMOGLOBIN 7.9 g/dl (12.0-16.0); LYMPHOCYTES # (AUTO) 1.2 X10'3 (1.1-4.8); LYMPHOCYTES % (AUTO) 15.6 % (21-51); MEAN CORPUSCULAR HEMOGLOBIN 30.4 PG (27.0-31.0); MEAN CORPUSCULAR VOLUME 92.1 FL (78-98); MEAN PLATELET VOLUME 7.8 FL (7.4-10.4); NEUTROPHILS # (AUTO) 5.2 X10'3 (1.8-7.7); NEUTROPHILS % (AUTO) 70.1 % (42-75); PLATELET COUNT 148 X10'3 (140-440); RED BLOOD COUNT 2.59 X10'6 (4.20-5.60); WHITE BLOOD COUNT 7.4 X10'3 (4.5-11.0)
[2024-10-18 06:21] LABS: ANION GAP 7 (8-16); BLOOD UREA NITROGEN 14 MG/DL (7-18); BUN/CREATININE RATIO 1.9 (10.0-20.0); CALCIUM 8.9 MG/DL (8.5-10.1); CHLORIDE 100 MMOL/L (99-107); CREATININE 7.23 MG/DL (0.40-0.90); GLUCOSE 94 MG/DL (70-104); MAGNESIUM 2.4 MG/DL (1.5-2.4); PHOSPHORUS 3.6 MG/DL (2.3-4.5); POTASSIUM 4.8 MMOL/L (3.5-5.1); SODIUM 135 MMOL/L (135-145); TOTAL CARBON DIOXIDE 27.9 MMOL/L (24-32); eCRCL 8 ML/MIN; eGFR 7 ML/MIN
[2024-10-18] MEDS ORDERED: normal saline 1000ml 100 ML IV PRN (07:55)
[2024-10-18] MEDS: heparin 1,000 units/ml 10ml inj HE ONE ×2 (08:44→08:45)
[2024-10-18] MEDS: enoxaparin 60mg/0.6ml syringe SUBCUT SCH (09:46)
[2024-10-18] MEDS ORDERED: LOSA25TA41 PO (09:56)
[2024-10-18] MEDS ORDERED: CLON0.1T2 PO (09:56)
[2024-10-18] MEDS ORDERED: APIX5TAB3 PO ×2 (10:07→16:09)
[2024-10-18] MEDS ORDERED: tacrolimus anhydrous 0.5mg capsule PO STA (14:08)
[2024-10-18] MEDS: tacrolimus anhydrous 1mg capsule PO STA (14:47)
[2024-10-18] MEDS ORDERED: LEVO750T68 PO (15:38)
[2024-10-18] MEDS ORDERED: tacrolimus anhydrous 1mg capsule PO SCH (20:00)
[2024-10-18] MEDS ORDERED: tacrolimus anhydrous 0.5mg capsule PO SCH ×2 (20:00)
== END 2024-10-18 15:56 | disposition home or self-care (01) | DRG 463 ==
LOC: ER 15:04 → ED HOLD 10-15 04:15 → PCU 3S 10-15 05:15
PROVIDERS: ADMIT Internal Medicine Pulmonary Disease; ATTEND Nurse Practitioner Family
PROC: 5A1D70Z Performance of Urinary Filtration, Intermittent, Less than 6 Hours Per Day (ICD-10-PCS; principal; 2024-10-16)
PROC: B32T1ZZ Computerized Tomography (CT Scan) of Left Pulmonary Artery using Low Osmolar Contrast (ICD-10-PCS; 2024-10-17)
PROC: B3201ZZ Computerized Tomography (CT Scan) of Thoracic Aorta using Low Osmolar Contrast (ICD-10-PCS; 2024-10-17)
PROC: B32S1ZZ Computerized Tomography (CT Scan) of Right Pulmonary Artery using Low Osmolar Contrast (ICD-10-PCS; 2024-10-17)
PROC: 5A1D70Z Performance of Urinary Filtration, Intermittent, Less than 6 Hours Per Day (ICD-10-PCS; 2024-10-18)
DX: N13.6 Pyonephrosis (principal); I31.39 Other pericardial effusion (noninflammatory); T86.19 Other complication of kidney transplant; I12.0 Hypertensive chronic kidney disease with stage 5 chronic kidney disease or end stage renal disease; N18.6 End stage renal disease; D63.8 Anemia in other chronic diseases classified elsewhere; E87.5 Hyperkalemia; Y83.8 Other surgical procedures as the cause of abnormal reaction of the patient, or of later complication, without mention of misadventure at the time of the procedure; Y92.89 Other specified places as the place of occurrence of the external cause
CPT/HCPCS: 36415; 71275; 74176; 80048; 80053; 80197; 83605; 83690; 83735; 84100; 84132; 84145; 84703; 85025; 85610; 87040; 87081; 93308; 93971; 96361; 96374; 99285; E1594; G0257; G0378; J0360; J0744; J1644; J1650; J1815; J1956; J2405; J2470; J3490; J7030; J7040; J7507; J7512; J7517; Q9967

== ENCOUNTER 2024-11-03 12:38 | Inpatient (IN) | payer MEDICAID ==
[~2024-11-03] VITALS: Ht 157.5 cm; Wt 54.4 kg
[~2024-11-03 12:38] MED LIST changes: -ALPR-624 PO; +AMLO-708 PO; -AMLO10TA5 PO; +APIX5TAB3 PO; +CARV-50 PO; -CARV25TA2 PO; +CYAN500T71 PO; +LEVO750T68 PO; -LOSA-416 PO; -LOSA-418 PO; +LOSA25TA41 PO; -METO100T14 PO; -PANT20TA2 PO; -PANT40TA54 PO; -PRED1TAB PO; +TACR0.5C20 PO; -TACR1CAP2 PO
--- NOTE | 2024-11-03 12:59 | ELECTROCARDIOGRAPH REPORT ---
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 Eliseo Vázquez Measurements Intervals [place] Rate: 73 P: 29 CT: 143 QRS: 66 QRSD: 86 T: 57 QT: 456 QTc: 503 Interpretive Statements Sinus rhythm Prolonged QT interval Baseline wander in lead(s) V1 Electronically Signed On 11-05-2024 15:44:[address] Eliseo Vázquez Please click the below link to view image of tracing.
--- NOTE | 2024-11-03 13:29 | RADIOLOGY REPORT ---
AP portable chest CLINICAL INDICATION: chest pain FINDINGS: Heart size is enlarged. Central line tip in the right atrium. No infiltrates or effusions. IMPRESSION: 1. Cardiomegaly. No acute cardiopulmonary pathology
[2024-11-03 13:50] LABS: BASOPHILS % (AUTO) 0.8 % (0-1); EOSINOPHILS # (AUTO) 0.1 X10'3 (0-0.9); EOSINOPHILS % (AUTO) 1.2 % (0-6); LYMPHOCYTES # (AUTO) 1.4 X10'3 (1.1-4.8); LYMPHOCYTES % (AUTO) 24.5 % (21-51); MEAN CORPUSCULAR HGB CONC 32.7 g/dL (33.0-36.5); MEAN CORPUSCULAR VOLUME 91.6 FL (78-98); MEAN PLATELET VOLUME 9.8 FL (7.4-10.4); MONOCYTES # (AUTO) 0.7 X10'3 (0-0.9); MONOCYTES % (AUTO) 12.6 % (2-12); NEUTROPHILS # (AUTO) 3.5 X10'3 (1.8-7.7); NEUTROPHILS % (AUTO) 60.9 % (42-75); RED BLOOD COUNT 2.22 X10'6 (4.20-5.60); WHITE BLOOD COUNT 5.7 X10'3 (4.5-11.0)
[2024-11-03 14:02] LABS: HEMATOCRIT 20.3 % (35.0-45.0); HEMOGLOBIN 6.7 g/dl (12.0-16.0); PLATELET COUNT 35 X10'3 (140-440)
[2024-11-03 14:18] LABS: ALBUMIN 2.7 G/DL (3.4-5.0); ALBUMIN/GLOBULIN RATIO 0.8 (1.1-1.5); ALKALINE PHOSPHATASE 58 IU/L (46-116); ANION GAP 7 (8-16); ASPARTATE AMINO TRANSFERASE 34 U/L (10-37); BILIRUBIN,TOTAL 0.4 MG/DL (0.1-1.0); BLOOD UREA NITROGEN 21 MG/DL (7-18); BUN/CREATININE RATIO 2.4 (10.0-20.0); CALCIUM 8.6 MG/DL (8.5-10.1); CHLORIDE 98 MMOL/L (99-107); CREATININE 8.73 MG/DL (0.40-0.90); GLUCOSE 76 MG/DL (70-104); PHOSPHORUS 4.2 MG/DL (2.3-4.5); POTASSIUM 4.6 MMOL/L (3.5-5.1); SODIUM 138 MMOL/L (135-145); TOTAL CARBON DIOXIDE 32.6 MMOL/L (24-32); TOTAL PROTEIN 5.9 G/DL (6.4-8.2); eCRCL 7 ML/MIN; eGFR 5 ML/MIN
[2024-11-03 14:19] LABS: ALANINE AMINOTRANSFERASE < 6 U/L (12-78)
--- NOTE | 2024-11-03 14:42 | Physician Documentation ---
History of Present Illness ~ Chief Complaint: Chest Pain Stated Complaint: CP Time Seen by MD: 12:48 Primary Medical Doctor: Shree QIU This is a 29-year-old female with a known history of end-stage renal disease, on dialysis, TTS, who completed her dialysis inside of the and developed chest pain. Chest pain is exertional, nonradiating not migratory. Not positional. Did not attempt to treat it. This has not happened in the past. She went to the outside facility, [facility], and had elevated troponin of 0.4, stopping at 0.6, and was subsequently transferred to us. Chest pain is improved on during my examination. Reports some shortness a breath which is also unusual for her she does not normally wear oxygen. Denies any other symptoms. Does not smoke, does not drink, do drugs Medication Reconciliation Allergies: Coded Allergies: ceftriaxone (Unverified Allergy, Severe, 10/14/24) Scheduled Amlodipine Besylate (Amlodipine Besylate), 1 TAB PO DAILY, (Reported) Apixaban (Eliquis), 5 MG PO BID Calcium Carbonate/Vitamin D3 (Oyster Shell 500 Mg + Vit D Tb), 1 EACH PO DAILY, (Reported) Carvedilol* (Coreg*), 2 TAB PO Q12H, (Reported) Cyanocobalamin* (Vitamin B-12*), 2 TAB PO DAILY, (Reported) Famotidine (Famotidine), 1 TAB PO DAILY, (Reported) Folic Acid/Vitamin B Comp W-C (Nephro-Inez Tablet), 1 TAB PO DAILY, (Reported) Hydralazine HCl (Hydralazine HCl), 1 TAB PO BID, (Reported) Levofloxacin (Levofloxacin), 1 TAB PO DAILY Losartan Potassium (Losartan Potassium), 25 MG PO DAILY Mycophenolate Mofetil* (Cellcept*), 2 CAP PO Q12H, (Reported) Prednisone* (Prednisone*), 1 TAB PO DAILY, (Reported) Tacrolimus Anhydrous* (Prograf*), 4 CAP PO Q12H, (Reported) Scheduled PRN Clonidine HCl (Clonidine HCl), 1 TAB PO BID PRN for high blood pressure Past Medical History Past Medical History: Hypertension, *RENAL/*, Chronic Kidney Disease Past Surgical History: abdominal surgery Other Past Surgical History: kidney transplant Patient History: Patient reports no known family medical history. Alcohol Use: None Drug Use: none Lives In: Home Review of Systems ROS 10 point review of systems was performed and unless noted above in HPI is negative for acute process/complaint. Physical Exam Vital Signs: Temperature: 97.4, Source: Oral, Heart Rate: 70, Respiratory Rate: 16, BP: 142/104, Pulse Oximetry: 99, Weight: 54.420 Oxygen Flow Rate: 3.0 Physical Exam GENERAL: Awake, alert, oriented, GCS 15, no apparent distress, non-toxic appearing, answers questions, follows commands appropriately. Examined in room 11 HEENT: Atraumatic, normocephalic, pupils equal, extraocular muscles intact, sclerae anicteric, mucus membranes moist, oropharynx is clear, no stridor. NECK: supple, full active range of motion, trachea midline, no thyromegaly, no lymphadenopathy, no JVD. CARDIOVASCULAR: regular rate/rhythm, no murmurs/gallops/rubs, Pulses are 2+ in all extremities and symmetric. Capillary refill less than 2 seconds. PULMONARY: Nonlabored, good air movement ,no respiratory distress, speaking in full sentences, coarse breath sounds bilaterally, no wheezing, no ronchi, no rales, no accessory muscle use. GASTROINTESTINAL: Soft, non-tender, non-distended, normal active bowel sounds, no organomegaly, no pulsatile masses, no CVA tenderness. NEUROLOGIC: Lucid with normal mental status. Normal facial symmetry. Moves all extremities symmetrically and with purpose. No truncal ataxia. Speech is fluid without evidence of dysarthria or aphasia, no focal deficits appreciated. MUSCULOSKELETAL: There is full range of motion of all extremities. There is no joint pain or joint swelling or joint erythema. There is no muscle pain or tenderness or swelling. EXTREMITIES: warm, well-perfused, no cyanosis, no clubbing, no edema, no acute deformities. Skin: warm, dry, no rashes or lesions, no jaundice, no petechiae orpurpura. No ecchymosis. PSYCHIATRIC: Normal affect, normal insight, normal concentration. Focused exam: [] Left upper extremity non working fistula, right upper chest wall for noted Progress Results/Orders Results/Orders Orders - PÉREZ DUKES DO Hs Troponin I W Calculations (11/03/24 14:57) Hs Troponin I W Calculations (11/03/24 15:57) Chest,Single View (11/03/24 12:58) Lrpc - No Active Bleeding (11/03/24 14:24) Type And Screen (11/03/24 14:24) Pt Inr (11/03/24 14:24) Transfusion Informed Consent (11/03/24 14:24) Page Hospitalist (11/03/24 14:24) Fill Out Med Reconciliation (11/03/24 14:24) Completed Orders - PÉREZ DUKES DO Electrocardiogram (11/03/24 12:57) Cbc/Diff (11/03/24 12:57) PHOS (11/03/24 12:57) MG (11/03/24 12:57) CMP (11/03/24 12:57) Hs Troponin I W Calculations (11/03/24 12:57) Chest,Single View (11/03/24 12:58) Vital Signs 11/03/24 11/03/24 12:48 12:55 Temp 97.4 Pulse 70 Resp 16 B/P (MAP) 142/104 Pulse Ox 99 99 O2 Delivery Nasal Cannula* O2 Flow Rate 3.0 3 FiO2 N/A Laboratory Tests Test 11/03/24 13:27 White Blood Count 5.7 Red Blood Count 2.22 L Hemoglobin 6.7 *L Hematocrit 20.3 *L Mean Corpuscular Volume 91.6 Mean Corpuscular Hemoglobin 30.0 Mean Corpuscular Hemoglobin Concent 32.7 L Red Cell Distribution Width 18.0 H Platelet Count 35 *L Mean Platelet Volume 9.8 Neutrophils (%) (Auto) 60.9 Lymphocytes (%) (Auto) 24.5 Monocytes (%) (Auto) 12.6 H Eosinophils (%) (Auto) 1.2 Basophils (%) (Auto) 0.8 Neutrophils # (Auto) 3.5 Lymphocytes # (Auto) 1.4 Monocytes # (Auto) 0.7 Eosinophils # (Auto) 0.1 Basophils # (Auto) 0.0 CBC Comment Sodium Level 138 Potassium Level 4.6 Chloride Level 98 L Carbon Dioxide Level 32.6 H Anion Gap 7 L Blood Urea Nitrogen 21 H Creatinine 8.73 H Estimated GFR/1.73 m2 5 BUN/Creatinine Ratio 2.4 L Glucose Level 76 Calcium Level 8.6 Phosphorus Level 4.2 Magnesium Level 2.0 Total Bilirubin 0.4 Aspartate Amino Transf (AST/SGOT) 34 Alanine Aminotransferase (ALT/SGPT) < 6 L Alkaline Phosphatase 58 Troponin I High Sensitivity 69 *H Total Protein 5.9 L Albumin 2.7 L Globulin 3.2 Albumin/Globulin Ratio 0.8 L Chemistry Comments EKG/XRAY/CT/US/VASC/MRI EKG : Additional Comment EKG was obtained and interpreted by myself shows sinus rhythm of 73, normal ID interval, narrow QRS, borderline QTC of 503, normal axis, no STEMI. Medical Decision Making Findings Facility Status: ED Holds, [facility] process The plan was discussed with the patient, who demonstrates clear understanding of the plan and is in agreement with the plan unless otherwise noted in the chart. All questions have been answered, all concerns were addressed unless otherwise documented. I was available throughout their ED stay for frequent reassessment and questions. Differential Diagnoses (considered and possible or likely): [Differential diagnosis considered includes chest wall pain, pleurisy, pneumonia, pulmonary embolus, GERD, esophagitis, gastritis, anxiety, stress reaction, costochondritis, acute coronary syndrome, aortic dissection, pericarditis, myocarditis, or pneumothorax.] ??Differential Diagnoses (considered and unlikely, not requiring evaluation currently): [Aortic/great vessels dissection was considered but it is unlikely based on absence of ripping, tearing, migratory chest pain, absence of syncope or focal neurologic deficits, physical examination indicating equal and symmetric pulses.] MDM Data Please see HPI for the following: Independent Historians and external Records Review. Historian: [Patient] Independent Historians: ?[Record review, EMS, discussion with Dr. Mj rivers] Medication Management: [Reviewed medication list] Social History and determinants: [Reviewed] Please see the body of the note for the following: Any independent interpretations of ECG, imaging studies. All vitals signs/haemodynamics, ordered tests were independently reviewed and interpreted by myself. Nursing triage complaint and vitals reviewed, additional nursing notes were reviewed as available and I agree unless otherwise noted or documented in contradiction in the chart Vital Signs: Independently reviewed Labs: Independently interpreted Imaging: Independently interpreted Old Medical Records: Independently reviewed, see HPI for relevant summary and information Pulse Oximetry: [88% on room air] interpreted as [hypoxia] by me [Mortgage Lender: [Regular Rate, Regular rhythm, no ectopy, NSR] reviewed and interpreted by me] Additionally notably showing: [Does require supplemental oxygenation new for the patient. Laboratory workup notable for critical anemia requiring transfusion. Troponin is elevated concerning for NSTEMI versus demand ischemia] chest x-ray on my independent interpretation shows cardiomegaly but no acute infiltrate Tests considered but not ordered include: [Stress test and echo can be done on an inpatient basis] Social Determinants of Health Impact: Patient was evaluated in [facility] [place] to healthcare due to below par ratio of patient to medical providers. [] Comorbid Conditions Impacting Present Evaluation and Care/Treatment: [End-stage renal disease on dialysis] Management Discussions with other Healthcare Providers: [Resident team regarding admission] Treatment and Disposition Medication Management (Given or considered): [Heparinization has been considerab ly given her critical anemia, risks of heparinization with a low troponin and possible demand ischemia outweigh benefits]. See EMR for details Consideration for Hospitalization/Escalation/Deescalation of Care: Admission for observation has been considered, and appears to be necessary for further workup of her high risk chest pain ?ED Course:?[No clinical deterioration] ?Shared decision making:?[] Code status:?FULL Please see the full Electronic Medical Record for full details of nursing documentation, medications list, other records of complete past medical history and conditions, vital signs, laboratory studies, and any radiologic study interpretations by radiologists. Portions of this note were completed using [employer] dictation software and as a result there may exist minor errors in spelling. I have reviewed elements of past family and social history and agree as included in note. Departure Disposition: 09 ADMITTED INPATIENT Impression: Primary Impression: Elevated troponin Additional Impressions: Anemia requiring transfusions Acute chest pain End stage renal disease on dialysis Condition: Stable Referrals: NO PRIMARY CARE PROVIDER (PCP) Critical Care Note Total Time (mins): 40 Critical Care Note CRITICAL CARE TIME: [ 40] minutes Treatments/Evaluations: Close monitoring and treatment of unstable vital signs, cardiorespiratory, and neurologic status, while maintaining tight balance of fluid, respiratory, and cardiac interventions. This time includes discussing the case with the patient and the patient�s family. This time does not include all p rocedures stated elsewhere in this record. This time also includes reviewing old records, labs and radiological studies. This time includes examining and re- examining the patient. Additionally, this time also includes arranging care with admitting and consulting physicians. Signature Scribe Signature: No scribe Attestation: This note accurately reflects clinical decisions, work performed by myself, Pérez Dukes, PÉREZ LOYOLA DO November 03, 2024 14:42
[2024-11-03 14:51] LABS: INR 1.2 INR; PROTHROMBIN TIME 11.7 SECONDS (9.0-12.0)
[2024-11-03] MEDS ORDERED: TACR1CAP PO (15:33)
[2024-11-03] MEDS ORDERED: AMLO5TAB16 PO (15:33)
[2024-11-03] MEDS ORDERED: MYCO500T5 PO (15:33)
[2024-11-03] MEDS ORDERED: ondansetron/PF 4mg/2ml inj IV PRN (15:35)
[2024-11-03] MEDS ORDERED: acetaminophen 325mg tablet PO PRN (15:35)
[2024-11-03] MEDS: HYDROmorphone 1 mg/ml syringe IM ONE (16:15)
--- NOTE | 2024-11-03 16:18 | HISTORY AND PHYSICAL-Residence ---
History & Physical Providers to CC Resident Creating Document: FABIANJEANNEJESSICACHARLES ~ History of Present Illness Primary Medical Doctor: Shree Mariscal Reason for Admit\Complaint: chest pain History of Present Illness Patient is a 29-year-old female with a history of hypertension, ESRD on dialysis, status post renal transplant on immune suppressive medications i.e. tacrolimus, mycophenolate, and prednisolone 5 mg presents to ER with chief complaints of episodic chest pain since Sunday. Patient developed episodic chest pain, located on the left side radiates to her left shoulder and down to her left upper quadrant. The pain is sharp in nature with no relieving or aggravating factors. Chest pain started after dialysis while back was stiff before the session. She also reports shortness of breaths on exertion and while lying flat since yesterday. She endorses nausea but denies vomiting, diaphoresis, fever, or chills. In ER, her H&H was 6.7/20.3. She was admitted on October 15, head left upper extremity DVT and has been on Eliquis 5 mg twice daily. She denies taking any NSAIDs, has not done upper or lower scopes in the past. She lives with her fiance, is independent in daily activities. Discussed advanced care directives and she wishes to be a full code. Allergies: Coded Allergies: ceftriaxone (Unverified Allergy, Severe, 10/14/24) morphine (Verified Adverse Reaction, Intermediate, itching and hives, 11/03/24) Home Medications Home Medications Active Eliquis (Apixaban) 5 Mg Tablet 5 Mg PO BID 30 Days Take 2 tablets (10mg) by mouth twice daily x 7 days, then take 1 tablet by mouth twice daily thereafter. Levofloxacin 750 Mg Tablet 1 Tab PO DAILY 10 Days Losartan Potassium 25 Mg Tablet 25 Mg PO DAILY 90 Days Clonidine HCl 0.1 Mg Tablet 1 Tab PO BID PRN MDD 2 30 Days Take 1 tablet as needed for SBP>160 Reported Amlodipine Besylate 5 Mg Tablet 1 Tab PO DAILY Mycophenolate Mofetil 500 Mg Tablet 2 Tab PO BID Prograf (Tacrolimus) 1 Mg Capsule 5 Cap PO DAILY Vitamin B-12* (Cyanocobalamin) 500 Mcg Tablet 2 Tab PO DAILY Hydralazine HCl 100 Mg Tablet 1 Tab PO BID 30 Days Famotidine 20 Mg Tablet 1 Tab PO DAILY 30 Days Coreg* (Carvedilol) 12.5 Mg Tablet 2 Tab PO Q12H 30 Days Prograf* (Tacrolimus) 0.5 Mg Capsule 4 Cap PO Q12H 30 Days Cellcept* (Mycophenolate Mofetil) 250 Mg Capsule 2 Cap PO Q12H 30 Days Amlodipine Besylate 10 Mg Tablet 1 Tab PO DAILY 30 Days Prednisone* (Prednisone) 5 Mg Tablet 1 Tab PO DAILY Oyster Shell 500 Mg + Vit D Tb (Calcium Carbonate/Vitamin D3) 500 Mg Calcium-5 Mcg (200 Unit) Tablet 1 Each PO DAILY Nephro-Inez Tablet (Folic Acid/Vitamin B Comp W-C) 0.8 Mg Tablet 1 Tab PO DAILY 30 Days Past Medical History Past Medical History Hypertension, ESRD Past Surgical History Surgical History Comment Renal transplant in 2014 Family History Family History: Patient reports no known family medical history. Past Social History Social History Comment Lives with her fiance in [place]. Denies smoking cigarettes, consuming alcohol, or using recreational drugs. Smoking: Quit greater than 1 year Alcohol Use: None Drug Use: None Lives In: Home ROS All Other Systems: Reviewed and Negative ROS As stated above in the HPI, otherwise all systems are reviewed and negative. Exam Vitals: Vital Signs Date Time Temp Pulse Resp B/P (MAP) Pulse Ox O2 Delivery O2 Flow Rate FiO2 11/03/24 15:34 16 11/03/24 12:55 99 Nasal Cannula* 3 N/A 11/03/24 12:48 97.4 70 142/104 General Appearance: Appears tired and lethargic HEENT: Atraumatic, normocephalic, JEANINE, EOMI. Normal oropharynx, moist oral mucosa. Neck: Trachea midline. Supple, normal ROM. No JVD, bruit, lymphadenopathy or masses, or other lesions. Respiratory: Chest wall is symmetric and without deformity. No signs of respiratory distress. Equal breath sounds bilaterally. No wheeze, rub, Rales or crackles. Cardiac: RRR, no murmur, rub or gallop. Normal S1 and S2. GI: No tenderness. Abdomen symmetric, nondistended, soft, normal bowel sounds x4 quadrant normoactive. No guarding, no rebound or rigidity. No hepatosplenomegaly. No masses, no bruit, no flank pain bilaterally. Extremities: Fistula right arm, dialysis catheter left-sided chest Skin: Intact, dry, warm, no rashes or petechia. Neuro: Speech is clear, alert and oriented x4. No sensory or motor deficit, DTRs normal. Cranial nerves II to XII intact. Diagnostic Data Last Recorded Lab Results: 11/03/24 1327 11/03/24 1327 Diagnostic Data: Laboratory Tests Test 11/03/24 13:27 Prothrombin Time 11.7 SECONDS (9.0-12.0) INR International Normalized Ratio 1.2 INR Coagulation Comments Advance Care Planning Advanced Care plannin - 30 Minutes Additional Plan Assessment and plan: Patient is a 29-year-old female with a history of hypertension, ESRD on dialysis, status post renal transplant on immune suppressive medications i.e. tacrolimus, mycophenolate, and prednisolone 5 mg presents to ER with chief complaints of episodic chest pain since Sunday. Episodic chest pain: Cardiac versus noncardiac (PUD, musculoskeletal) EKG does not show any acute ischemic changes, initial troponins very slightly elevated, expected in ESRD - we will follow with serial troponins Pain relieved with Dilaudid 1 mg IV Symptomatic normocytic anemia: BM suppression vs anemia of chronic disease H&H 6.7/20.3 1pRBC ordered by ER, we will continue to monitor H&H closely laura follow reticulocyte count, LDH, and parvo B19 Protonix 40 mg IV twice daily initiated Eliquis withheld, risks versus benefits discussed with the patient Patient dimas soto test, her nurse was present at bedside Spoke to Dr. Haskins - Since Hb has remined in this range for a while, less likely acute GI bleed, recommended continuing protonix ESRD: HD Sunday, , and Sunday Status post renal transplant, on immunosuppressants BUN/creatinine 21/8.73 with EGFR of only 5.0 Does not appear volume overloaded Consulted Dr Lim, will follow the patient Hypertension: Continue hydralazine, losartan and carvedilol Status post renal transplant in 2015: On immunosuppressants i.e. mycophenolate mofetil, tacrolimus, and prednisolone 5 mg daily Jessica Cadena Internal Medicine Resident Date of Service: November 03, 2024 Billing Provider: DORIAN CASTRO MD, SHAMS, RES November 03, 2024 16:18
[2024-11-03] MEDS: pantoprazole 40MG/NS 100ML BAG 100 ML IV SCH (16:36)
[2024-11-03 17:36] LABS: RETICULOCYTE % (AUTO) 5.8 % (0.5-1.5)
[2024-11-03 17:37] LABS: ABSOLUTE RETICS # < 6000 /CUMM (23000-93000)
[2024-11-03 17:52] VITALS: BP 161/115; PULSE 79; RESP 16; TEMP 99.4
--- NOTE | 2024-11-03 18:20 | CONSULTATION REPORT ---
Consult Providers to CC ~ History of Present Illness Primary Medical Doctor: Tammi Lopez MD Reason for Admit\Complaint: ESRD patient with severe anemia and thrombocytopenia History of Present Illness i have been asked to do renal consult on this 29-year-old female with a history of hypertension, ESRD on dialysis, status post renal transplant on immune suppressive medications i.e. tacrolimus, mycophenolate, and prednisolone 5 mg presents to ER with chief complaints of episodic chest pain since Sunday. She is found to be critically anemic but denies any tarry stools or burgundy colored stools. She endorses nausea but denies vomiting, diaphoresis, fever, or chills. In ER, her H&H was 6.7/20.3. She was admitted on October 15, head left upper extremity DVT and has been on Eliquis 5 mg twice daily. She denies taking any NSAIDs, has not done upper or lower scopes in the past. She lives with her fiance, is independent in daily activities. Discussed advanced care directives and she wishes to be a full code. She wants me to cut back her BP meds as they are too much for her. but hse does run high BP. Allergies: Coded Allergies: ceftriaxone (Unverified Allergy, Severe, 10/14/24) morphine (Verified Adverse Reaction, Intermediate, itching and hives, 11/03/24) Home Medications Home Medications Active Eliquis (Apixaban) 5 Mg Tablet 5 Mg PO BID 30 Days Take 2 tablets (10mg) by mouth twice daily x 7 days, then take 1 tablet by mouth twice daily thereafter. Levofloxacin 750 Mg Tablet 1 Tab PO DAILY 10 Days Losartan Potassium 25 Mg Tablet 25 Mg PO DAILY 90 Days Clonidine HCl 0.1 Mg Tablet 1 Tab PO BID PRN MDD 2 30 Days Take 1 tablet as needed for SBP>160 Reported Amlodipine Besylate 5 Mg Tablet 1 Tab PO DAILY Mycophenolate Mofetil 500 Mg Tablet 2 Tab PO BID Prograf (Tacrolimus) 1 Mg Capsule 5 Cap PO DAILY Vitamin B-12* (Cyanocobalamin) 500 Mcg Tablet 2 Tab PO DAILY Hydralazine HCl 100 Mg Tablet 1 Tab PO BID 30 Days Famotidine 20 Mg Tablet 1 Tab PO DAILY 30 Days Coreg* (Carvedilol) 12.5 Mg Tablet 2 Tab PO Q12H 30 Days Prograf* (Tacrolimus) 0.5 Mg Capsule 4 Cap PO Q12H 30 Days Cellcept* (Mycophenolate Mofetil) 250 Mg Capsule 2 Cap PO Q12H 30 Days Amlodipine Besylate 10 Mg Tablet 1 Tab PO DAILY 30 Days Prednisone* (Prednisone) 5 Mg Tablet 1 Tab PO DAILY Oyster Shell 500 Mg + Vit D Tb (Calcium Carbonate/Vitamin D3) 500 Mg Calcium-5 Mcg (200 Unit) Tablet 1 Each PO DAILY Nephro-Inez Tablet (Folic Acid/Vitamin B Comp W-C) 0.8 Mg Tablet 1 Tab PO DAILY 30 Days Past Medical History Past Medical History Faiiled kidney transplant, Hypertension, ESRD Past Surgical History Surgical History Comment Renal transplant in 2015 Family History Family History: Patient reports no known family medical history. Past Social History Social History Comment Patient reports no known family medical history. Lives with her fiance in [place]. Denies smoking cigarettes, consuming alcohol, or using recreational drugs. Smoking: Quit greater than 1 year Alcohol Use: None Drug Use: None Lives In: Home Exam Vitals: Vital Signs Date Time Temp Pulse Resp B/P (MAP) Pulse Ox O2 Delivery O2 Flow Rate FiO2 11/03/24 16:15 16 11/03/24 12:55 99 Nasal Cannula* 3 N/A 11/03/24 12:48 97.4 70 142/104 General: Vital Signs: As above, pale conjunctiva General: Normal body habitus,ill looking, no acute distress. Skin: No rashes, lumps, ulcers, blisters, purpura or petechiae HEENT: Anicteric sclera, JEANINE Neck: Supple and nontender without enlargement of the thyroid, or lymphadenopathy. Chest: Normal size and shape, no tenderness, CTA bilaterally Heart: Regular. No jugular venous distention, S1 and S2 heard , no gallop Abdomen: Soft and non tender no organomegaly,BS+ Extremities: No pedal edema Neuro: Nonfocal. Diagnostic Data Last Recorded Lab Results: 11/03/24 1327 11/03/24 1327 Diagnostic Data: Laboratory Tests Test 11/03/24 13:27 Prothrombin Time 11.7 SECONDS (9.0-12.0) INR International Normalized Ratio 1.2 INR Coagulation Comments Problems: (1) Anemia Status: Acute Assessment & Plan: not sure if this is due to GI bleed, or bone marrow suppression. check the reticulocyte count. Discussed with . (2) ESRD (end stage renal disease) Assessment & Plan: HD tomorrow. (3) Failed kidney transplant Status: Chronic Assessment & Plan: adjust the cellcept downwards due to the thrombocytopenia. (4) DVT (deep venous thrombosis) (5) Thrombocytopenia Assessment & Plan: cellcept willbe cut down to 250mg bid for now. do not give the full dose please. ROSA OSEGUERA MD November 03, 2024 18:20
[2024-11-03] MEDS: carVEDilol 12.5mg tablet PO SCH (18:56)
[2024-11-03] MEDS: hydrALAZINE 25 MG tablet PO SCH (18:56)
[2024-11-03 19:49] VITALS: BP 133/92; PULSE 83; RESP 16; TEMP 99.3; O2SAT 100
[2024-11-03] MEDS ORDERED: mycophenolate mofetil 250mg capsule PO SCH (20:00)
[2024-11-03 22:00] VITALS: BP 155/98; PULSE 91; RESP 17; TEMP 98.1; O2SAT 91
[2024-11-03] MEDS: tacrolimus anhydrous 1mg capsule PO SCH (22:31)
[2024-11-03] MEDS: mycophenolate mofetil 250mg capsule PO SCH (22:32)
[2024-11-03] MEDS: losartan 25mg tablet PO SCH (22:32)
[2024-11-03 22:44] LABS: HEMATOCRIT 22.4 % (35.0-45.0); HEMOGLOBIN 7.4 g/dl (12.0-16.0); MEAN CORPUSCULAR HEMOGLOBIN 29.6 PG (27.0-31.0); MEAN CORPUSCULAR HGB CONC 33.2 g/dL (33.0-36.5); MEAN CORPUSCULAR VOLUME 89.3 FL (78-98); MEAN PLATELET VOLUME 10.6 FL (7.4-10.4); RED BLOOD COUNT 2.51 X10'6 (4.20-5.60); RED CELL DISTRIBUTION WIDTH 17.7 % (11.5-14.5); WHITE BLOOD COUNT 5.9 X10'3 (4.5-11.0)
[2024-11-03 23:00] LABS: PLATELET COUNT 50 X10'3 (140-440)
[2024-11-03] MEDS: HYDROcodone/acetaminophen 10/325mg tab PO PRN (23:09)
[2024-11-03] MEDS: diphenhydrAMINE 25mg capsule PO ONE (23:09)
[2024-11-04] VITALS (25 sets, daily range): BP systolic 128–183; BP diastolic 76–112; PULSE 67–97; RESP 13–20; TEMP 97.6–98.8; O2SAT 92–100
[2024-11-04] MEDS: cloNIDine 0.1 mg tablet PO PRN (02:06)
[2024-11-04] MEDS: amLODIPine 5mg tablet PO ONE (04:37)
[2024-11-04 06:41] LABS: BASOPHILS % (AUTO) 0.7 % (0-1); EOSINOPHILS # (AUTO) 0.2 X10'3 (0-0.9); EOSINOPHILS % (AUTO) 3.1 % (0-6); LYMPHOCYTES # (AUTO) 1.1 X10'3 (1.1-4.8); MEAN CORPUSCULAR HEMOGLOBIN 29.6 PG (27.0-31.0); MEAN CORPUSCULAR HGB CONC 33.1 g/dL (33.0-36.5); MEAN CORPUSCULAR VOLUME 89.5 FL (78-98); MEAN PLATELET VOLUME 10.2 FL (7.4-10.4); MONOCYTES # (AUTO) 0.9 X10'3 (0-0.9); MONOCYTES % (AUTO) 17.2 % (2-12); NEUTROPHILS # (AUTO) 2.9 X10'3 (1.8-7.7); RED CELL DISTRIBUTION WIDTH 17.9 % (11.5-14.5); WHITE BLOOD COUNT 5.1 X10'3 (4.5-11.0)
[2024-11-04 06:47] LABS: HEMOGLOBIN 6.8 g/dl (12.0-16.0)
[2024-11-04 06:48] LABS: HEMATOCRIT 20.6 % (35.0-45.0); PLATELET COUNT 46 X10'3 (140-440)
[2024-11-04 06:55] LABS: ALBUMIN 2.6 G/DL (3.4-5.0); ALBUMIN/GLOBULIN RATIO 0.9 (1.1-1.5); ALKALINE PHOSPHATASE 50 IU/L (46-116); ANION GAP 9 (8-16); ASPARTATE AMINO TRANSFERASE 20 U/L (10-37); BILIRUBIN,TOTAL 0.5 MG/DL (0.1-1.0); BLOOD UREA NITROGEN 27 MG/DL (7-18); BUN/CREATININE RATIO 2.7 (10.0-20.0); CALCIUM 8.7 MG/DL (8.5-10.1); CHLORIDE 97 MMOL/L (99-107); CREATININE 9.88 MG/DL (0.40-0.90); GLUCOSE 70 MG/DL (70-104); PHOSPHORUS 4.5 MG/DL (2.3-4.5); POTASSIUM 4.7 MMOL/L (3.5-5.1); SODIUM 137 MMOL/L (135-145); TOTAL CARBON DIOXIDE 30.8 MMOL/L (24-32); TOTAL PROTEIN 5.6 G/DL (6.4-8.2); eCRCL 7 ML/MIN; eGFR 5 ML/MIN
[2024-11-04 07:01] LABS: ALANINE AMINOTRANSFERASE < 6 U/L (12-78)
[2024-11-04 07:11] LABS: APTT 33 SECONDS (22-32); INR 1.2 INR; PROTHROMBIN TIME 11.8 SECONDS (9.0-12.0)
[2024-11-04] MEDS ORDERED: famotidine 20mg tablet PO SCH (08:00)
[2024-11-04] MEDS: folic acid/vitamin B complex w/vitamin C 0.8mg tablet PO SCH (08:21)
[2024-11-04] MEDS: predniSONE 5mg tablet PO SCH (08:21)
[2024-11-04] MEDS: cyanocobalamin 500mcg tablet PO SCH (08:22)
[2024-11-04 08:23] LABS: TOTAL CELLS COUNTED 100
[2024-11-04 08:24] LABS: ANISOCYTOSIS 1+; PLATELET ESTIMATE DECREASED
[2024-11-04] MEDS: mycophenolate mofetil 250mg capsule PO SCH (08:26)
[2024-11-04] MEDS: EPOETIN ALFA-EPBX 20,000 UNIT/ML 1 ML MDV IV ONE (09:29)
--- NOTE | 2024-11-04 09:51 | PROGRESS NOTE- Residence ---
Progress Note - Resident Providers to CC Resident Creating Document: FLORINA DISLA RES CC: MALCOLM OSEGUERA MD ~ Central Line/PICC still needed: N\A Antibiotic Timeout Antibiotic Ordered?: No Subjective Patient is seen this morning. She is undergoing hemodialysis, tolerating well, blood pressure in the range of 130/80. Her usual dry weight is 58 EKGs and she is on TTS schedule As per history obtained from the patient, she had kidney transplant in 2014, done at [facility]. For kidney transplant she was on hemodialysis for four years for presumed reason of hypertensive nephrosclerosis. Renal biopsy was not obtained prior to the transplant. Post transplant she was off the dialysis for 10 years and in May 2024, she got admitted for hypertensive emergency, diagnosed with graft failure and was started on hemodialysis. Since then she is on follow up with transplant Clinic at [facility]. She was admitted at [facility] in August 2024 for hematuria, and was diagnosed with graft intolerance, received high-dose steroids. She was also having anemia secondary to endothelial dysfunction from graft intolerance/hypotension. During that time TTP was ruled out. She is currently being evaluated by the transplant clinic at [facility], and is on the transplant list. She does not have any living donor available for kidney donation. Similar history of kidney disease in her sister, had the similar range and is on hemodialysis. Objective Vital Signs Date Time Temp Pulse Resp B/P (MAP) Pulse Ox O2 Delivery O2 Flow Rate FiO2 11/04/24 09:40 78 16 143/98 (113) 98 Room Air 11/04/24 08:39 97.7 11/04/24 06:28 4.0 11/03/24 12:55 N/A Result Diagram: 11/04/24 0610 11/04/24 0610 General: Adult female, puffy face, AAO x4, not in apparent distress Head: Normocephalic with an atraumatic Eyes: Pupils- 3mm, reacting to light, conjunctiva- anicteric Nose and throat: No polyps, septum- normal, no mucosal ulcers Neck: Supple, no lymphadenopathy, no carotid bruit Respiratory: No use of accessory muscles of respiration, Bilateral equal air entry Cardiac: S1-S2 heard, rythm regular, systolic murmur in mitral and tricuspid Abdomen: non distended, no tenderness, no organomegaly, bowel sounds- heard, RLQ scar present, palpable kidney in the right lower quadrant, no tenderness Extremities: no clubbing, no pedal edema, no deformities, peripheral pulses- 2+, left nonfunctioning AV fistula, right chest tunneled dialysis catheter Skin: warm and dry, no rash, no purpura Neuro: No focal deficit, gross cranial nerve exam- normal Coagulation Studies Laboratory Tests Test 11/04/24 06:10 Prothrombin Time 11.8 SECONDS (9.0-12.0) INR International Normalized Ratio 1.2 INR Activated Partial Thromboplast Time 33 SECONDS (22-32) H Coagulation Comments Assessment Assessment 29 yr F admitted on 11/03 with history of hypertensive nephrosclerosis s/p DDKT in 2014, c/b graft failure and graft intolerance, currently on immunosuppressants, on iHD TTS, undergoing evaluation for possible renal transplant at [facility], presented to the ER with chief complaints of chest pain over the left side of the chest. Nephrology consulted for hemodialysis She had history of DJD in 2014, was on IHD for four years before that, did not have a renal biopsy prior to transplant. In dialysis free and was on immunosuppressants but restarted on dialysis since May 2024. In August 2024 she got admitted for hematuria and was diagnosed with graft intolerance, anemia and thrombocytopenia thought to be secondary to endothelial dysfunction secondary to graft intolerance and hypertension and was treated with high-dose steroids. Currently she is undergoing evaluation at [facility] for possible renal transplant. Plan Plan History of hypertensive nephrosclerosis s/p donor kidney transplant (DDKT) IN 2014 c/b graft failure in 2023 ERSD- iHD- TTS since 05/25 c/b graft intolerance in 09/23 -patient's dry weight is 58 kg, current weight is 54 kg -is in sync with her TTS schedule, we will do HD with ultrafiltrate of 4 L today -next HD to be done on HD prescription - access- right tunneled dialysis catheter -UF-4 L -blood flow-350 mL/minute -sodium-140 -potassium-2 -bicarb-32 -Calcium-2.5 mmol -time- 3 hrs -calcium, phosphorus, and potassium at goal -daily monitoring of electrolytes -follow up on PTH Immunosuppression -at home patient takes CellCept 500 mg b.i.d., prednisone 5 mg once daily and tacrolimus 2 mg b.i.d. -dose of the CellCept was reduced to 250 mg b.i.d. in view of thrombocytopenia -continue all these medications -will monitor tacro trough levels- goal of the tacro trough levels- 4-6 Hypertension -SBP- ranging from 130-180 -currently on amlodipine 10 mg once daily, hydralazine p.o. 100 mg b.i.d., losartan 25 mg once daily, carvedilol 25 mg q.12, and clonidine 0.1 mg b.i.d. p.r.n. -goal of the blood pressure 130/80 -continue monitoring blood pressure, and if not under control- can go up on the dose of losartan to 100 mg once daily Normocytic anemia Thrombocytopenia -H&H 6.8/20.6, undergo one PRBC transfusion yesterday-no irradiation done -Epogen 24596 units once today -reviewed records from [facility], patient had anemia with thrombocytopenia in August 2023 and TTS was ruled out at the time. Anemia and thrombocytopenia is thought to be secondary to endothelial dysfunction from graft intolerance and received high-dose steroids, she was then tapered -If patient remains hemodynamically stable, she might not possibly needs prbc transfusion. pRBC increases the risk of alloantibodies which could interfere with her future transplant -primary team working for evaluation for GI bleed -obtain peripheral smear History of hematuria -patient complaining of occasional hematuria, however he does not produce urine output. -Bladder scan done-showed no urine -obtain urinalysis to look for hematuria Chest pain -primary team is evaluating for potential reasons Thank you for this interesting consult. We will continue to follow the patient along with you Plan of care discussed with the attending Dr. Raphael Disla MD Nephrology resident Attending note: Agree with above. patient seen and examined. dialysis just completed. tolerated it ok. still denies any black tarry stools. c/o burning micturition. will do bladder scan and also check UA and culture. If positive, with her previous history of ESBL, will consider iv antibiotics at that point. Malcolm Oseguera MD Nephrology / [facility] Date of Service: November 04, 2024 Billing Provider: MALCOLM OSEGUERA MD, HARIVARSHA, CHARLES November 04, 2024 09:51 MALCOLM OSEGUERA MD November 04, 2024 19:59
[2024-11-04] MEDS: amLODIPine 5mg tablet PO SCH (14:57)
[2024-11-04 18:43] LABS: HEMATOCRIT 27.7 % (35.0-45.0); HEMOGLOBIN 9.3 g/dl (12.0-16.0); MEAN CORPUSCULAR HEMOGLOBIN 29.6 PG (27.0-31.0); MEAN CORPUSCULAR HGB CONC 33.5 g/dL (33.0-36.5); MEAN CORPUSCULAR VOLUME 88.4 FL (78-98); MEAN PLATELET VOLUME 9.2 FL (7.4-10.4); PLATELET COUNT 84 X10'3 (140-440); RED BLOOD COUNT 3.13 X10'6 (4.20-5.60); WHITE BLOOD COUNT 6.3 X10'3 (4.5-11.0)
--- NOTE | 2024-11-04 19:37 | PROGRESS NOTE- Residence ---
Progress Note - Resident Providers to CC Resident Creating Document: JOLANTA CADENA RES ~ Antibiotic Timeout Antibiotic Ordered?: No Subjective Patient is seen this morning. She is undergoing hemodialysis, tolerating well, blood pressure in the range of 130/80. Hemoglobin still remained low; 6.8, another PRBC ordered. Objective Vital Signs Date Time Temp Pulse Resp B/P (MAP) Pulse Ox O2 Delivery O2 Flow Rate FiO2 11/04/24 16:50 76 16 156/86 (109) 98 Room Air 11/04/24 15:45 98.2 11/04/24 08:00 2.0 11/03/24 12:55 N/A General: Adult female, puffy face, AAO x4, not in apparent distress Head: Normocephalic with an atraumatic Eyes: Pupils- 3mm, reacting to light, conjunctiva- anicteric Nose and throat: No polyps, septum- normal, no mucosal ulcers Neck: Supple, no lymphadenopathy, no carotid bruit Respiratory: No use of accessory muscles of respiration, Bilateral equal air entry Cardiac: S1-S2 heard, rythm regular, systolic murmur in mitral and tricuspid Abdomen: non distended, no tenderness, no organomegaly, bowel sounds- heard, RLQ scar present, palpable kidney in the right lower quadrant, no tenderness Extremities: no clubbing, no pedal edema, no deformities, peripheral pulses- 2+, left nonfunctioning AV fistula, right chest tunneled dialysis catheter Skin: warm and dry, no rash, no purpura Neuro: No focal deficit, gross cranial nerve exam- normal Result Diagram: 11/04/24 1834 11/04/24 0610 Coagulation Studies Laboratory Tests Test 11/04/24 06:10 Prothrombin Time 11.8 SECONDS (9.0-12.0) INR International Normalized Ratio 1.2 INR Activated Partial Thromboplast Time 33 SECONDS (22-32) H Coagulation Comments Advance Care Planning Advanced Care plannin - 30 Minutes Assessment Assessment Patient is a 29-year-old female with a history of hypertension, ESRD on dialysis, status post renal transplant on immune suppressive medications i.e. tacrolimus, mycophenolate, and prednisolone 5 mg presents to ER with chief complaints of episodic chest pain since Sunday. Plan Plan Episodic chest pain; resolved Cardiac etiology ruled out, Most likely musculoskeletal Normocytic anemia/ Thrombocytopenia: H&H 6.8/20.6, undergo one PRBC transfusion yesterday-no irradiation done Epogen 22056 units once today Per [facility] record, patient had anemia with thrombocytopenia in August 2023 and TTS was ruled out at the time. Anemia and thrombocytopenia is thought to be secondary to endothelial dysfunction from graft intolerance and received high- dose steroids, she was then tapered PRBC transfusion is discouraged by Nephrology unless patient is hemodynamically unstable Protonix 40 mg IV twice daily initiated Eliquis withheld, risks versus benefits discussed with the patient Patient delcined guaiac test, her nurse was present at bedside Spoke to Dr. Haskins - Since Hb has remined in this range for a while, less likely acute GI bleed, recommended continuing PPI ESRD: HD Sunday, , and Sunday' Status post renal transplant (2014), on immunosuppressants Graft failure, on transplant list at [facility] Dr. Lim on board, underwent HD today Hypertension: SBP- ranging from 130-180 On amlodipine 10 mg once daily, hydralazine p.o. 100 mg b.i.d., losartan 25 mg once daily, carvedilol 25 mg q.12, and clonidine 0.1 mg b.i.d. p.r.n. BP goal; 130/80 Nephro recommendation; continue monitoring blood pressure, and if not under control- can go up on the dose of losartan to 100 mg once daily Immunosuppression: Home meds include CellCept 500 mg b.i.d., prednisone 5 mg once daily and tacrolimus 2 mg b.i.d. CellCept was reduced to 250 mg b.i.d. in view of thrombocytopenia Continue all these medications Nephrology monitors tacro trough levels- goal of the tacro trough levels- 4-6 History of hematuria: C/O occasional hematuria, however he does not produce urine output. Bladder scan done- showed no urine UA for hematuria Jolanta Cadena Internal Medicine Resident Date of Service: November 04, 2024 Billing Provider: DORIAN CASTRO MD,JOLANTA, RES November 04, 2024 19:37
[2024-11-04] MEDS: pantoprazole 40mg Tablet.DR PO SCH (19:48)
[2024-11-04] MEDS ORDERED: emollient combination-Eucerin 200 ML LOTION TP SCH (22:20)
[2024-11-04] MEDS: diphenhydrAMINE 2%/zinc acetate cream TP SCH (22:52)
[2024-11-05] VITALS (7 sets, daily range): BP systolic 136–170; BP diastolic 83–101; PULSE 86–94; RESP 13–17; TEMP 97.3–99; O2SAT 94–100
[2024-11-05] MEDS: diphenhydrAMINE 25mg capsule PO ONE (01:04)
[2024-11-05 07:08] LABS: BASOPHILS % (AUTO) 0.6 % (0-1); EOSINOPHILS # (AUTO) 0.2 X10'3 (0-0.9); HEMATOCRIT 27.7 % (35.0-45.0); HEMOGLOBIN 9.5 g/dl (12.0-16.0); LYMPHOCYTES # (AUTO) 1.2 X10'3 (1.1-4.8); LYMPHOCYTES % (AUTO) 17.7 % (21-51); MEAN CORPUSCULAR HGB CONC 34.1 g/dL (33.0-36.5); MEAN PLATELET VOLUME 8.7 FL (7.4-10.4); MONOCYTES % (AUTO) 13.9 % (2-12); NEUTROPHILS # (AUTO) 4.6 X10'3 (1.8-7.7); NEUTROPHILS % (AUTO) 64.8 % (42-75); PLATELET COUNT 106 X10'3 (140-440); RED BLOOD COUNT 3.15 X10'6 (4.20-5.60); RED CELL DISTRIBUTION WIDTH 17.5 % (11.5-14.5)
[2024-11-05 07:31] LABS: APTT 34 SECONDS (22-32); INR 1.1 INR; PROTHROMBIN TIME 11.3 SECONDS (9.0-12.0)
[2024-11-05] MEDS: mineral oil/petrolatum, white cream 113gm jar TP SCH (07:37)
[2024-11-05 07:40] LABS: ALBUMIN/GLOBULIN RATIO 0.9 (1.1-1.5); ALKALINE PHOSPHATASE 61 IU/L (46-116); ANION GAP 10 (8-16); ASPARTATE AMINO TRANSFERASE 18 U/L (10-37); BILIRUBIN,TOTAL 0.8 MG/DL (0.1-1.0); BLOOD UREA NITROGEN 18 MG/DL (7-18); BUN/CREATININE RATIO 2.8 (10.0-20.0); CALCIUM 8.9 MG/DL (8.5-10.1); CHLORIDE 101 MMOL/L (99-107); GLUCOSE 74 MG/DL (70-104); MAGNESIUM 2.1 MG/DL (1.5-2.4); PHOSPHORUS 3.1 MG/DL (2.3-4.5); POTASSIUM 3.8 MMOL/L (3.5-5.1); SODIUM 138 MMOL/L (135-145); TOTAL CARBON DIOXIDE 27.1 MMOL/L (24-32); TOTAL PROTEIN 6.4 G/DL (6.4-8.2); eCRCL 10 ML/MIN; eGFR 7 ML/MIN
[2024-11-05 07:50] LABS: ALANINE AMINOTRANSFERASE < 6 U/L (12-78)
[2024-11-05] MEDS ORDERED: losartan 25mg tablet PO ONE (09:10)
[2024-11-05 09:11] LABS: HBSAG SCREEN Negative (Negative)
[2024-11-05] MEDS: diphenhydrAMINE 25mg capsule PO PRN (09:13)
--- NOTE | 2024-11-05 10:51 | PROGRESS NOTE- Residence ---
Progress Note - Resident Providers to CC Resident Creating Document: FLORINA DISLA RES CC: RICKEY CONTRERAS III DO ~ Central Line/PICC still needed: N\A Antibiotic Timeout Antibiotic Ordered?: No Subjective Patient is seen this morning. He had itching last night presumed to be secondary to morphine versus hemodialysis and received Benadryl. Stated she is feeling tired. He is not producing urine urine output however she does have the sensation to void. And during that time she is feeling some burning sensation. Objective Vital Signs Date Time Temp Pulse Resp B/P (MAP) Pulse Ox O2 Delivery O2 Flow Rate FiO2 11/05/24 09:16 86 16 139/86 (103) 98 11/05/24 06:00 99.0 Room Air 11/04/24 08:00 2.0 11/03/24 12:55 N/A Result Diagram: 11/05/24 0632 11/05/24 0632 General: Adult female, puffy face, AAO x4, not in apparent distress Head: Normocephalic with an atraumatic Eyes: Pupils- 3mm, reacting to light, conjunctiva- anicteric Nose and throat: No polyps, septum- normal, no mucosal ulcers Neck: Supple, no lymphadenopathy, no carotid bruit Respiratory: No use of accessory muscles of respiration, Bilateral equal air entry Cardiac: S1-S2 heard, rythm regular, systolic murmur in mitral and tricuspid Abdomen: non distended, no tenderness, no organomegaly, bowel sounds- heard, RLQ scar present, palpable kidney in the right lower quadrant, no tenderness Extremities: no clubbing, no pedal edema, no deformities, peripheral pulses- 2+, left nonfunctioning AV fistula, right chest tunneled dialysis catheter Skin: warm and dry, no rash, no purpura Neuro: No focal deficit, gross cranial nerve exam- normal Coagulation Studies Laboratory Tests Test 11/05/24 06:32 Prothrombin Time 11.3 SECONDS (9.0-12.0) INR International Normalized Ratio 1.1 INR Activated Partial Thromboplast Time 34 SECONDS (22-32) H Coagulation Comments Assessment Assessment 29 yr F admitted on 11/03 with history of hypertensive nephrosclerosis s/p DDKT in 2014, c/b graft failure and graft intolerance, currently on immunosuppressants, on iHD TTS, undergoing evaluation for possible renal transplant at [facility], presented to the ER with chief complaints of chest pain over the left side of the chest. Nephrology consulted for hemodialysis She had history of DDKT in 2014, was on IHD for four years before that, did not have a renal biopsy prior to transplant. In dialysis free and was on immunosuppressants but restarted on dialysis since May 2024. In August 2024 she got admitted for hematuria and was diagnosed with graft intolerance, anemia and thrombocytopenia thought to be secondary to endothelial dysfunction secondary to graft intolerance and hypertension and was treated with high-dose steroids. Currently she is undergoing evaluation at [facility] for possible renal transplant. Plan Plan History of hypertensive nephrosclerosis s/p donor kidney transplant (DDKT) IN 2014 c/b graft failure in 2023 ERSD- iHD- TTS since 05/25 c/b graft intolerance in 09/23 -patient's dry weight is 58 kg, current weight is 54 kg -is in sync with her TTS schedule, undergone dialysis on 11/04 with a UF of 4 L -next HD to be done on HD prescription - access- right tunneled dialysis catheter -UF-4 L -blood flow-350 mL/minute -sodium-140 -potassium-2 -bicarb-32 -Calcium-2.5 mmol -time- 3 hrs -calcium, phosphorus, and potassium at goal -daily monitoring of electrolytes -follow up on PTH Immunosuppression -at home patient takes CellCept 500 mg b.i.d., prednisone 5 mg once daily and tacrolimus 2 mg b.i.d. -dose of the CellCept was reduced to 250 mg b.i.d. in view of thrombocytopenia -continue all these medications -will monitor tacro trough levels- goal of the tacro trough levels- 4-6 Hypertension -SBP- ranging from 130-180 -currently on amlodipine 10 mg once daily, hydralazine p.o. 100 mg b.i.d., losartan 25 mg once daily, carvedilol 25 mg q.12, and clonidine 0.1 mg b.i.d. p.r.n. -goal of the blood pressure 130/80 -continue monitoring blood pressure, and if not under control- can go up on the dose of losartan to 100 mg once daily Normocytic anemia Thrombocytopenia -H&H 6.8/20.6, undergo one PRBC transfusion yesterday-no irradiation done -Epogen 45514 units once today -reviewed records from [facility], patient had anemia with thrombocytopenia in August 2023 and TTS was ruled out at the time. Anemia and thrombocytopenia is thought to be secondary to endothelial dysfunction from graft intolerance and received high-dose steroids, she was then tapered -If patient remains hemodynamically stable, she might not possibly needs prbc transfusion. pRBC increases the risk of alloantibodies which could interfere with her future transplant -primary team working for evaluation for GI bleed- consulted GI and they recommended EGD on outpatient basis -peripheral smear-pending History of hematuria -patient complaining of occasional hematuria, however he does not produce urine output. -Bladder scan done-showed no urine -obtain urinalysis to look for hematuria Chest pain -as per primary team, cardiac etiology ruled out probably musculoskeletal Thank you for this interesting consult. As per primary team patient is getting discharged today his she states tomorrow we will do HD. Florina Disla MD Nephrology resident Date of Service: November 05, 2024 Billing Provider: RICKEY CONTRERAS III, HARIVARSHA, RES November 05, 2024 10:51
[2024-11-05] MEDS: losartan 25mg tablet PO ONE (12:44)
[2024-11-05] MEDS ORDERED: MYCO250C PO (13:14)
[2024-11-05] MEDS ORDERED: LOSA50TA64 PO (13:14)
--- NOTE | 2024-11-05 15:35 | DISCHARGE SUMMARY-Residence ---
Discharge Summary Providers to CC Resident Creating Document: JOLANTA GUTIERREZ RES ~ Discharge Summary Admission Diagnosis: Chest pain, Symptomatic Anemia, ESRD Hospital Course DATE OF ADMISSION: November 03, 2024 DATE OF DISCHARGE: November 05, 2024 Discharge Diagnosis\Comment: Chest pain, not cardiac origin, likely musculoskeletal Normocytic anemia/thrombocytopenia ESRD, HD Sunday, , and Sunday Status post renal transplant (2014), on immunosuppressants Graft failure, on transplant list at [facility] Hypertension Operations\Procedures: None Consultants: Dr. Lim Complications: None Condition on DC: Stable New Medications: Losartan Potassium (Losartan Potassium) 50 Mg Tablet 50 MG PO DAILY for 30 Days, #30 TAB Mycophenolate Mofetil (Mycophenolate Mofetil) 250 Mg Capsule 250 MG PO Q12H for 30 Days, #60 CAP Continued Medications: Amlodipine Besylate (Amlodipine Besylate) 10 Mg Tablet 1 TAB PO DAILY for 30 Days, #30 TAB 0 Refills Amlodipine Besylate (Amlodipine Besylate) 5 Mg Tablet 1 TAB PO DAILY Apixaban (Eliquis) 5 Mg Tablet 5 MG PO BID for 30 Days, #74 TAB 2 Refills Take 2 tablets (10mg) by mouth twice daily x 7 days, then take 1 tablet by mouth twice daily thereafter. Calcium Carbonate/Vitamin D3 (Oyster Shell 500 Mg + Vit D Tb) 500 Mg Calcium-5 Mcg (200 Unit) Tablet 1 EACH PO DAILY, TAB Carvedilol* (Coreg*) 12.5 Mg Tablet 2 TAB PO Q12H for 30 Days, #60 TAB Clonidine HCl (Clonidine HCl) 0.1 Mg Tablet 1 TAB PO BID PRN for high blood pressure MDD 2 for 30 Days, #30 TAB 0 Refills Take 1 tablet as needed for SBP>160 Cyanocobalamin* (Vitamin B-12*) 500 Mcg Tablet 2 TAB PO DAILY, TAB Famotidine (Famotidine) 20 Mg Tablet 1 TAB PO DAILY for 30 Days, #60 TAB 0 Refills Folic Acid/Vitamin B Comp W-C (Nephro-Inez Tablet) 0.8 Mg Tablet 1 TAB PO DAILY for 30 Days, #30 TAB 0 Refills Hydralazine HCl (Hydralazine HCl) 100 Mg Tablet 1 TAB PO BID for 30 Days, #90 TAB 0 Refills Prednisone* (Prednisone*) 5 Mg Tablet 1 TAB PO DAILY, TAB 0 Refills Tacrolimus Anhydrous (Prograf) 1 Mg Capsule 5 CAP PO DAILY Tacrolimus Anhydrous* (Prograf*) 0.5 Mg Capsule 4 CAP PO Q12H for 30 Days, #30 CAP Discontinued Medications: Losartan Potassium (Losartan Potassium) 25 Mg Tablet 25 MG PO DAILY for 90 Days, #90 TAB Mycophenolate Mofetil (Mycophenolate Mofetil) 500 Mg Tablet 2 TAB PO BID Discharge Summary: Patient was admitted with the following HPI: Patient is a 29-year-old female with a history of hypertension, ESRD on dialysis, status post renal transplant on immune suppressive medications i.e. tacrolimus, mycophenolate, and prednisolone 5 mg presents to ER with chief complaints of episodic chest pain since Sunday. Patient developed episodic chest pain, located on the left side radiates to her left shoulder and down to her left upper quadrant. The pain is sharp in nature with no relieving or aggravating factors. Chest pain started after dialysis while back was stiff before the session. She also reports shortness of breaths on exertion and while lying flat since yesterday. She endorses nausea but denies vomiting, diaphoresis, fever, or chills. In ER, her H&H was 6.7/20.3. She was admitted on October 15, head left upper extremity DVT and has been on Eliquis 5 mg twice daily. She denies taking any NSAIDs, has not done upper or lower scopes in the past. She lives with her fiance, is independent in daily activities. Discussed advanced care directives and she wishes to be a full code. Hospital course: Patient presented to ER with chief complaints of episodic chest chest pain. EKGs did not show any acute ischemic changes, initial troponins very slightly elevated, expected in ESRD - trended down. Pain relieved with Belcher and Dilaudid. Additionally, additionally patient was found to have H&H 6.7/20.3. Eliquis withheld, Protonix initiated, and 1 unit of PRBC given in ER, followed by another unit on the floor. Patient delcined guaiac test. GI specialist, Dr. Haskins consulted who stated that since Hb has remined in this range for a while, less likely acute GI bleed, recommended continuing PPI. Additionally, patient had end-stage renal disease, status post renal transplant in 2014, on immunosuppressants and graft failure, on transplant list at [facility]. Therefore, Dr. Lim was consulted, continued hemodialysis. Per [facility] record, patient had anemia with thrombocytopenia in August 2023 and TTS was ruled out at the time. Anemia and thrombocytopenia is thought to be secondary to endothelial dysfunction from graft intolerance and received high- dose steroids, she was then tapered. Since patient is on [facility] transplant list, further pRBC transfusion is discouraged by Nephrology unless patient is hemodynamically unstable. CellCept was reduced to 250 mg b.i.d. in view of thrombocytopenia. Losartan increased to 50 mg daily. She also received Epogen 89564 units. Discharge course: Patient is hemodynamically stable. Her chest pain, likely of muscular skeletal origin is controlled with current management. Her H&H has remained stable after 2nd transfusion (9.3 and 9.5 respectively). She was discharged with the following instructions: Your hemoglobin remained stable after transfusion. Follow up with your primary care doctor and repeat your CBC including hemoglobin and hematocrit in one week. One of your medication i.e. mycophenolate mofetil dose was decreased from 500 twice daily to 250 mg twice daily because your platelet count was very low - continue taking mycophenolate mofetil 250 mg daily. Your blood pressure was not optimally controlled, TF for your losartan dose has increased to 50 mg daily, continue with your other medications. Follow up with your inspector packer and keep your regular scheduled dialysis appointment. Also follow up with [facility] for your kidney transplant. Discharge physical exam: Vital Signs Date Time Temp Pulse Resp B/P (MAP) Pulse Ox O2 Delivery O2 Flow Rate FiO2 11/05/24 12:44 87 11/05/24 10:16 14 11/05/24 10:00 97.6 136/89 (105) 94 Room Air 11/04/24 08:00 2.0 11/03/24 12:55 N/A General: Adult female, puffy face, AAO x4, not in apparent distress Head: Normocephalic with an atraumatic Eyes: Pupils- 3mm, reacting to light, conjunctiva- anicteric Nose and throat: No polyps, septum- normal, no mucosal ulcers Neck: Supple, no lymphadenopathy, no carotid bruit Respiratory: No use of accessory muscles of respiration, Bilateral equal air entry Cardiac: S1-S2 heard, rythm regular, systolic murmur in mitral and tricuspid Abdomen: non distended, no tenderness, no organomegaly, bowel sounds- heard, RLQ scar present, palpable kidney in the right lower quadrant, no tenderness Extremities: no clubbing, no pedal edema, no deformities, peripheral pulses- 2+, left nonfunctioning AV fistula, right chest tunneled dialysis catheter Skin: warm and dry, no rash, no purpura Neuro: No focal deficit, gross cranial nerve exam- normal Discharge lab: CBC: WBCs 7.0, RBC 3.15, hemoglobin 9.5, hematocrit 27.7, MCV 88.0, RDW 17.5, platelet 106 Metabolic profile: Sodium 138, potassium 3.8, chloride 101, HC03 27.1, BUN/creatinine 18/6.50, EGFR 7.0, *Problems/Diagnosis: (1) Anemia Status: Acute (2) ESRD (end stage renal disease) (3) Failed kidney transplant Status: Chronic (4) DVT (deep venous thrombosis) (5) Thrombocytopenia Total Time Spent on D/C: Up to 30 Minutes Date of Service: November 05, 2024 Billing Provider: DORIAN CASTRO MD, SHAMS, RES November 05, 2024 15:34
[2024-11-06] MEDS ORDERED: losartan 50mg tablet PO SCH (08:00)
== END 2024-11-05 16:42 | disposition home or self-care (01) | DRG 203 ==
LOC: ER 12:39 → PCU 3S 15:40
PROVIDERS: ADMIT Family Medicine; ATTEND Family Medicine
PROC: 30233N1 Transfusion of Nonautologous Red Blood Cells into Peripheral Vein, Percutaneous Approach (ICD-10-PCS; principal; 2024-11-03)
PROC: 5A1D70Z Performance of Urinary Filtration, Intermittent, Less than 6 Hours Per Day (ICD-10-PCS; 2024-11-04)
DX: R07.89 Other chest pain (principal); T86.12 Kidney transplant failure; D69.6 Thrombocytopenia, unspecified; I12.0 Hypertensive chronic kidney disease with stage 5 chronic kidney disease or end stage renal disease; D84.821 Immunodeficiency due to drugs; N18.6 End stage renal disease; R79.89 Other specified abnormal findings of blood chemistry; D64.9 Anemia, unspecified; Y83.8 Other surgical procedures as the cause of abnormal reaction of the patient, or of later complication, without mention of misadventure at the time of the procedure; Y92.89 Other specified places as the place of occurrence of the external cause; Z94.0 Kidney transplant status; Z87.891 Personal history of nicotine dependence; Z99.2 Dependence on renal dialysis; Z88.1 Allergy status to other antibiotic agents; Z79.899 Other long term (current) drug therapy; Z88.5 Allergy status to narcotic agent; Z79.01 Long term (current) use of anticoagulants; Z86.718 Personal history of other venous thrombosis and embolism
CPT/HCPCS: 36415; 36430; 71045; 80053; 80197; 83615; 83735; 84100; 84484; 84702; 85007; 85025; 85027; 85045; 85610; 85730; 86644; 86747; 86885; 86900; 86901; 86920; 86945; 87081; 87340; 93005; 97161; 99291; A6258; A6449; E1594; G0257; G0378; J1171; J2470; J7030; J7040; J7507; J7512; J7517; P9016; Q0163; Q4081